=== PATIENT | female | born 1985 | race Caucasian/White ===

== ENCOUNTER 2017-04-04 16:02 | Emergency (ER) | payer OTHER ==
[2017-04-04 16:09] VITALS: RESP 18
[2017-04-04] MEDS ORDERED: NALOXONE 0.4 MG/ML 1 ML VIAL IV STA ×2 (16:10→16:16)
[2017-04-04 16:56] VITALS: BP 116/79; PULSE 110; TEMP 98.1
--- NOTE | 2017-04-04 17:00 | ED ---
Overdose HPI - General Chief Complaint: Overdose Stated Complaint: OVERDOSE Time Seen by Provider: 04/04/17 16:10 Source: patient, EMS, RN notes reviewed Mode of arrival: EMS Limitations: no limitations - History of Present Illness Initial Comments: 31-year-old female presents emergency for via EMS for heroin overdose. Patient was found at a home and states that she used 20 pack upper one. She states that she relapsed on heroin abuse. states that she just feels drowsy at this time. Patient was not given any Narcan prior arrival she is awake alert and orientated. Patient's is here with police secondary to her wound. Patient has no physical complaints she denies being depressed or suicidal at this time. - Related Data Allergies Allergy/AdvReac Type Severity Reaction Status Date / Time Sulfa (Sulfonamide Allergy Anaphylaxis Verified 04/04/17 16:06 Antibiotics) Review of Systems ROS Statement: Those systems with pertinent positive or pertinent negative responses have been documented in the HPI. ROS Other: All systems not noted in ROS Statement are negative. Past Medical History Past Medical History: Seizure Disorder History of Any Multi-Drug Resistant Organisms: None Reported Past Surgical History: No Surgical Hx Reported Past Psychological History: Anxiety, Bipolar, Depression, Schizophrenia Smoking Status: Current every day smoker Past Alcohol Use History: None Reported Past Drug Use History: Heroin, Marijuana General Exam Limitations: no limitations General appearance: alert, in no apparent distress Head exam: Present: atraumatic, normocephalic, normal inspection Eye exam: Present: normal appearance, PERRL, EOMI. Absent: scleral icterus, conjunctival injection, periorbital swelling ENT exam: Present: normal exam, mucous membranes moist Neck exam: Present: normal inspection. Absent: tenderness, meningismus, lymphadenopathy Respiratory exam: Present: normal lung sounds bilaterally. Absent: respiratory distress, wheezes, rales, rhonchi, stridor Cardiovascular Exam: Present: normal rhythm, tachycardia, normal heart sounds. Absent: systolic murmur, diastolic murmur, rubs, gallop, clicks Neurological exam: Present: alert, oriented X3, CN II-XII intact Skin exam: Present: warm, dry, intact, normal color. Absent: rash Course Vital Signs 04/04/17 16:06 Temperature 98.2 F Pulse Rate 125 H Respiratory 18 Rate Blood Pressure 125/74 O2 Sat by Pulse 95 Oximetry Medical Decision Making - Medical Decision Making 31-year-old female presented for heroin use. Patient given 0.4 Narcan she is more awake at this time she has been observed for one hour patient is no respiratory distress. Patient is awake delivery to 3. Patient will be discharged to police custody. Disposition Clinical Impression: Heroin abuse Disposition: HOME SELF-CARE Condition: Stable Instructions: Narcotic Abuse (ED) Additional Instructions: Please return to emergency room if symptoms worsen or any other concerns. Referrals: Desiree Weller MD [Primary Care Provider] - 1-2 days Time of Disposition: 17:00
== END 2017-04-04 17:01 | disposition home or self-care (01) ==
LOC: EC 16:02
DX: F11.10 Opioid abuse, uncomplicated (principal); F17.200 Nicotine dependence, unspecified, uncomplicated; Z88.2 Allergy status to sulfonamides
CPT/HCPCS: 99284; 96374; J2310

== ENCOUNTER 2023-09-28 23:39 | Observation (INO) | payer OTHER ==
--- NOTE | 2023-09-29 01:15 | XR ---
EXAMINATION TYPE: XR KUB DATE OF EXAM: 09/29/2023 1:08 AM CLINICAL HISTORY: Abdominal pain. Right lower quadrant pain for last 40 hours. TECHNIQUE: Two Upright KUB images of the abdomen are obtained. COMPARISON: None. FINDINGS: Scattered gas is seen in non-distended small and large bowel loops. Gas is seen in nondiste nded stomach. There is no visceromegaly, pneumoperitoneum, or abnormal calcification appreciated. The lung bases are clear and the visualized osseous structures are intact. IMPRESSION: Overall nonobstructive bowel gas pattern.
[2023-09-29 01:18] LABS: Basophils # (A) 0.1 k/uL (0-0.2); Basophils % (A) 0 %; Eosinophils # (A) 0.3 k/uL (0-0.7); Eosinophils % (A) 2 %; HCT 44.4 % (34.0-46.0); HGB 15.4 gm/dL (11.4-16.0); Lymphocytes % (A) 11 %; MCH 32.9 pg (25.0-35.0); MCHC 34.8 g/dL (31.0-37.0); MCV 94.5 fL (80.0-100.0); Mean Platelet Volume 8.6; Monocytes # (A) 0.7 k/uL (0-1.0); Monocytes % (A) 4 %; Neutrophils % (A) 82 %; Platelet Count 322 k/uL (150-450); RDW 11.7 % (11.5-15.5); WBC 18.3 k/uL (3.8-10.6)
[2023-09-29 01:33] LABS: ALT 34 U/L (4-34); AST 26 U/L (14-36); African American GFR (CKD) >90 (>60 ml/min/1.73 sqM); Albumin 4.3 g/dL (3.5-5.0); Alkaline Phosphatase 90 U/L (38-126); Amylase 48 U/L (30-110); Anion Gap 7 mmol/L; Blood Urea Nitrogen 14 mg/dL (7-17); Carbon Dioxide 21 mmol/L (22-30); Chloride 104 mmol/L (98-107); Glucose 98 mg/dL (74-99); Lipase 49 U/L (23-300); Non-African American GFR(CKD) >90 (>60 ml/min/1.73 sqM); Sodium 132 mmol/L (137-145); Total Protein 7.9 g/dL (6.3-8.2)
[2023-09-29 01:54] LABS: Potassium 4.1 mmol/L (3.5-5.1)
[2023-09-29] MEDS: ONDANSETRON 4 MG/2 ML VIAL IVP STA (03:37)
[2023-09-29] MEDS: HYDROmorphone 1 MG/ML 1 ML SYRINGE IVP STA (03:39)
[2023-09-29] MEDS: SODIUM CHLORIDE 0.9% 1,000 ML IV ONE (03:41)
--- NOTE | 2023-09-29 03:52 | ED ---
Abdominal Pain HPI - General Source: patient Mode of arrival: wheelchair Limitations: no limitations <Vicenta Harris - Last Filed: 09/29/23 03:51> <Nithya Willett P - Last Filed: 09/29/23 06:08> - General Chief Complaint: Abdominal Pain Stated Complaint: abd pain Time Seen by Provider: 09/29/23 02:47 - History of Present Illness Initial Comments: 37-year-old female presenting with chief complaint of abdominal pain. Patient has had right lower quadrant pain for the past 2 days. She admits to nausea with no vomiting. She is having dysuria and dark urine. No history of abdominal surgery. No fevers or chills. No diarrhea. (Vicenta Harris) - Related Data Allergies Allergy/AdvReac Type Severity Reaction Status Date / Time Sulfa (Sulfonamide Allergy Anaphylaxis Verified 09/29/23 00:24 Antibiotics) Review of Systems ROS Other: All systems not noted in ROS Statement are negative. <Vicenta Harris - Last Filed: 09/29/23 03:51> ROS Other: All systems not noted in ROS Statement are negative. <Nithya Willett - Last Filed: 09/29/23 06:08> ROS Statement: Those systems with pertinent positive or pertinent negative responses have been documented in the HPI. Past Medical History Past Medical History: Asthma, Seizure Disorder History of Any Multi-Drug Resistant Organisms: None Reported Past Surgical History: No Surgical Hx Reported Past Psychological History: Anxiety, Bipolar, Depression, Schizophrenia Smoking Status: Current every day smoker, Vaper Past Alcohol Use History: Occasional Past Drug Use History: Cocaine, Heroin, Marijuana, Methamphetamine <Vicenta Harris - Last Filed: 09/29/23 03:51> General Exam Limitations: no limitations General appearance: alert, in distress (in pain) Head exam: Present: atraumatic, normocephalic Eye exam: Present: normal appearance, EOMI Neck exam: Present: normal inspection Respiratory exam: Absent: respiratory distress GI/Abdominal exam: Present: soft, tenderness, guarding. Absent: distended, rebound, rigid Neurological exam: Present: alert, oriented X3 Psychiatric exam: Present: normal affect, normal mood Skin exam: Present: warm, dry <Vicenta Harris - Last Filed: 09/29/23 03:51> Course Vital Signs 09/29/23 09/29/23 09/29/23 00:25 03:23 05:19 Temperature 98.9 F Pulse Rate 110 H 86 91 Respiratory 24 18 18 Rate Blood Pressure 129/87 137/84 132/80 O2 Sat by Pulse 100 100 99 Oximetry Medical Decision Making - Lab Data Result diagrams: 09/29/23 01:00 09/29/23 01:00 <Vicenta Harris - Last Filed: 09/29/23 03:51> - Lab Data Result diagrams: 09/29/23 01:00 09/29/23 01:00 <Nithya Willett - Last Filed: 09/29/23 06:08> - Medical Decision Making Was patient admitted / discharged? Hospital course, mention meds given and route, prescriptions, significant lab abnormalities, going to OR and other pertinent info. @ -Admit Undiagnosed new problem with uncertain prognosis? @ -No Drug Therapy requiring intensive monitoring for toxicity (Heparin, Nitro, Insulin, Cardizem)? @ -No Were any procedures done? @ -No Diagnosis/symptom? @ -Acute appendicitis without perforation Acute, or Chronic, or Acute on Chronic? @ -Acute Uncomplicated (without systemic symptoms) or Complicated (systemic symptoms)? @ -default Side effects of treatment? @ -No Exacerbation, Progression, or Severe Exacerbation? @ -No Poses a threat to life or bodily function? How? (Chest pain, USA, OR, pneumonia, PE, COPD, DKA, ARF, appy, cholecystitis, CVA, Diverticulitis, Homicidal, Suicidal, threat to staff... and all critical care pts) @ -Yes, can advance to peritonitis septic and septic shock (Nithya Willett) - Lab Data Lab Results 09/29/23 09/29/23 09/29/23 Range/Units 01:00 01:00 01:00 WBC 18.3 H (3.8-10.6) k/uL RBC 4.70 (3.80-5.40) m/uL Hgb 15.4 (11.4-16.0) gm/dL Hct 44.4 (34.0-46.0) % MCV 94.5 (80.0-100.0) fL MCH 32.9 (25.0-35.0) pg MCHC 34.8 (31.0-37.0) g/dL RDW 11.7 (11.5-15.5) % Plt Count 322 (150-450) k/uL MPV 8.6 Neutrophils % 82 % Lymphocytes % 11 % Monocytes % 4 % Eosinophils % 2 % Basophils % 0 % Neutrophils # 15.0 H (1.3-7.7) k/uL Lymphocytes # 2.0 (1.0-4.8) k/uL Monocytes # 0.7 (0-1.0) k/uL Eosinophils # 0.3 (0-0.7) k/uL Basophils # 0.1 (0-0.2) k/uL Sodium 132 L (137-145) mmol/L Potassium 4.1 (3.5-5.1) mmol/L Chloride 104 (98-107) mmol/L Carbon Dioxide 21 L (22-30) mmol/L Anion Gap 7 mmol/L BUN 14 (7-17) mg/dL Creatinine 0.60 (0.52-1.04) mg/dL Est GFR (CKD-EPI)AfAm >90 (>60 ml/min/1.73 sqM) Est GFR (CKD-EPI)NonAf >90 (>60 ml/min/1.73 sqM) Glucose 98 (74-99) mg/dL Plasma Lactic Acid David 1.2 (0.7-2.0) mmol/L Calcium 9.0 (8.4-10.2) mg/dL Total Bilirubin 1.0 (0.2-1.3) mg/dL AST 26 (14-36) U/L ALT 34 (4-34) U/L Alkaline Phosphatase 90 (38-126) U/L Total Protein 7.9 (6.3-8.2) g/dL Albumin 4.3 (3.5-5.0) g/dL Amylase 48 (30-110) U/L Lipase 49 (23-300) U/L HCG, Qual 09/29/23 Range/Units 01:00 WBC (3.8-10.6) k/uL RBC (3.80-5.40) m/uL Hgb (11.4-16.0) gm/dL Hct (34.0-46.0) % MCV (80.0-100.0) fL MCH (25.0-35.0) pg MCHC (31.0-37.0) g/dL RDW (11.5-15.5) % Plt Count (150-450) k/uL MPV Neutrophils % % Lymphocytes % % Monocytes % % Eosinophils % % Basophils % % Neutrophils # (1.3-7.7) k/uL Lymphocytes # (1.0-4.8) k/uL Monocytes # (0-1.0) k/uL Eosinophils # (0-0.7) k/uL Basophils # (0-0.2) k/uL Sodium (137-145) mmol/L Potassium (3.5-5.1) mmol/L Chloride (98-107) mmol/L Carbon Dioxide (22-30) mmol/L Anion Gap mmol/L BUN (7-17) mg/dL Creatinine (0.52-1.04) mg/dL Est GFR (CKD-EPI)AfAm (>60 ml/min/1.73 sqM) Est GFR (CKD-EPI)NonAf (>60 ml/min/1.73 sqM) Glucose (74-99) mg/dL Plasma Lactic Acid David (0.7-2.0) mmol/L Calcium (8.4-10.2) mg/dL Total Bilirubin (0.2-1.3) mg/dL AST (14-36) U/L ALT (4-34) U/L Alkaline Phosphatase (38-126) U/L Total Protein (6.3-8.2) g/dL Albumin (3.5-5.0) g/dL Amylase (30-110) U/L Lipase (23-300) U/L HCG, Qual Not Detected Disposition <Vicenta Harris - Last Filed: 09/29/23 03:51> Is patient prescribed a controlled substance at d/c from ED?: No <Nithya Willett - Last Filed: 09/29/23 06:08> Clinical Impression: Acute appendicitis Disposition: ADMITTED IP TO THIS HOSP Condition: Stable Referrals: Renzo Hubbard MD [Primary Care Provider] - 1-2 days
--- NOTE | 2023-09-29 05:22 | CT ---
EXAMINATION TYPE: CT abdomen pelvis w con DATE OF EXAM: 09/29/2023 HISTORY: Pt presents with right lower quadrant pain for the past [address] DLP: 777.7mGycm Automated Exposure Control for Dose Reduction was Utilized. CONTRAST: CT scan of the abdomen and pelvis is performed with IV Contrast, patient injected with 100 mL of Isov ue 300. COMPARISON: None. FINDINGS: LUNG BASES: No significant abnormality is appreciated. LIVER/GB: No significant abnormality is appreciated. PANCREAS: No significant abnormality is seen. SPLEEN: No significant abnormality is seen. ADRENALS: No significant abnormality is seen. KIDNEYS: No significant abnormality is seen. BOWEL: Abnormal appendix in the right pelvis which is dilated up to 13 mm and has moderate to severe ill-defined surrounding fluid and fat stranding. No well-formed fluid collection or drainable abscess . No free air. No abnormal small or large bowel dilatation. UTERUS/ADNEXA: Anteverted uterus. LYMPH NODES: No greater than 1cm abdominal or pelvic lymph nodes are appreciated. OSSEOUS STRUCTURES: No significant abnormality is seen. OTHER: No significant additional abnormality is seen. IMPRESSION: CT findings consistent with uncomplicated acute appendicitis as detailed above. Fairly se adams inflammatory changes are noted. Critical results communicated to emergency room physician via phone call at time of dictation.
[2023-09-29] MEDS: PIPERACILLIN-TAZOBACTAM 3.375 GM in SODIUM CHLORIDE 0.9% 100 ML IVPB SCH ×2 (05:35→22:17)
[2023-09-29] MEDS ORDERED: NALOXONE 0.4 MG/ML 1 ML VIAL IV PRN (05:45)
[2023-09-29] MEDS ORDERED: ONDANSETRON 4 MG/2 ML VIAL IVP PRN ×2 (05:45→14:46)
[2023-09-29] MEDS: HYDROmorphone 1 MG/ML 1 ML SYRINGE IVP PRN (06:46)
[2023-09-29] MEDS: SODIUM CHLORIDE 0.9% 1,000 ML IV SCH (06:47)
[2023-09-29 08:17] LABS: Appearance,Urine Cloudy (Clear); Bacteria,Urine Rare /hpf; Bilirubin,Urine Negative (Negative); Blood,Urine Negative (Negative); Budding Yeast,Urine Rare /hpf; Cocaine Screen,Urine Not Detected (NotDetected); Color,Urine Light Yellow; Glucose,Urine (UA) Negative (Negative); Ketones,Urine Negative (Negative); Leukocyte Esterase,Urine Trace (Negative); Mucus,Urine Rare /hpf; Nitrite,Urine Negative (Negative); Opiate Screen,Urine Detected (NotDetected); PH, Urine 5.5 (5.0-8.0); Phencyclidine Screen,Urine Not Detected (NotDetected); Protein,Urine Negative (Negative); RBC,Urine 1 /hpf (0-5); Squamous Epithelial Cell,Urine 13 /hpf (0-4); Urn Cannabinoid Scrn Detected (NotDetected); Urobilinogen,Urine <2.0 mg/dL (<2.0); WBC,Urine 6 /hpf (0-5)
[2023-09-29 08:18] LABS: Amphetamine Screen,Urine Detected (NotDetected); Barbiturate Screen,Urine Not Detected (NotDetected); Benzodiazepines Screen,Urine Not Detected (NotDetected); Methadone Screen, Urine Not Detected (NotDetected); Oxycodone Screen, Urine Not Detected (NotDetected); Tricyclic Antidepressant,Urine Not Detected (NotDetected)
--- NOTE | 2023-09-29 11:32 | P.GSHP ---
History of Present Illness H&P Date: 09/29/23 CHIEF COMPLAINT: Abdominal pain HISTORY OF PRESENT ILLNESS: This is a 37-year-old female who presented to the hospital with complaints of right lower quadrant abdominal pain x 2 days. She has been having nausea no vomiting. She reports no fevers but has felt chilled. She had a CT scan of the abdomen pelvis that showed evidence of acute appendicitis. She has been mildly tachycardic and evidence of leukocytosis. Patient does have a history of heroin abuse. And she recently used meth and madeleine lucy a couple of days ago. Her drug screen is positive for opiates, amphetamines methamphetamines and marijuana. Patient denies any prior abdominal surgical history. Denies any cardiac history. Denies any chest pain or shortness of breath. PAST MEDICAL HISTORY: Asthma, seizure disorder, anxiety, bipolar, depression, schizophrenia PAST SURGICAL HISTORY: None MEDICATIONS: See below ALLERGIES: See below SOCIAL HISTORY: Prior history of heroin use. Recent cocaine and meth use. Patient does vape and use marijuana. REVIEW OF SYSTEMS: CONSTITUTIONAL: Denies fever or chills. HEENT: Denies blurred vision, vision changes, or eye pain. Denies hemoptysis CARDIOVASCULAR: Denies chest pain or pressure. RESPIRATORY: No shortness of breath. GASTROINTESTINAL: See HPI for pertinent findings HEMATOLOGIC: Denies bleeding disorders. GENITOURINARY: Denies any blood in urine or increased urinary frequency. SKIN: Denies pruitis. Denies rash. PHYSICAL EXAM: VITAL SIGNS: Reviewed GENERAL: Well-developed in no acute distress. HEENT: No sclera icterus. Extraocular movements grossly intact. Moist buccal mucosa. Head is atraumatic, normocephalic. No nasal drainage. ABDOMEN: Soft. Mildly distended. Tenderness to palpation right lower quadrant NEUROLOGIC: Alert and oriented. Cranial nerves II through XII grossly intact. LABORATORY DATA: WBC 18.3 Hgb 15.4 platelets 322 Sodium 132 potassium 4.1 creatinine 0.60 Lactic acid 1.2 LFTs normal lipase 49 Urine hCG not detected Drug screen positive for opiates, amphetamines, methamphetamines and marijuana IMAGING: CT scan abdomen pelvis ED findings consistent with uncomplicated acute appendicitis. Fairly severe inflammatory changes are noted. KUB x-ray overall nonobstructive bowel gas pattern ASSESSMENT: 1. Acute appendicitis PLAN: -Patient scheduled for laparoscopic appendectomy today with Dr. Landaverde -Keep patient n.p.o. -Continue IV fluids -Continue antibiotics -Continue pain management Physician Rubber Engraver note has been reviewed by physician. Signing provider agrees with the documented findings, assessment, and plan of care. Past Medical History Past Medical History: Asthma, Seizure Disorder History of Any Multi-Drug Resistant Organisms: None Reported Past Surgical History: No Surgical Hx Reported Past Psychological History: Anxiety, Bipolar, Depression, Schizophrenia Smoking Status: Current every day smoker, Vaper Past Alcohol Use History: Occasional Past Drug Use History: Cocaine, Heroin, Marijuana, Methamphetamine Medications and Allergies Home Medications Medication Instructions Recorded Confirmed Type No Known Home Medications 09/29/23 09/29/23 History Allergies Allergy/AdvReac Type Severity Reaction Status Date / Time banana Allergy Anaphylaxis Verified 09/29/23 07:00 Sulfa (Sulfonamide Allergy Anaphylaxis Verified 09/29/23 07:00 Antibiotics) sulfamethoxazole Allergy Anaphylaxis Verified 09/29/23 07:00 [From Bactrim] trimethoprim [From Bactrim] Allergy Anaphylaxis Verified 09/29/23 07:00 Surgical - Exam Vital Signs Temp Pulse Resp BP Pulse Ox 98.9 F 110 H 24 129/87 100 09/29/23 00:25 09/29/23 00:25 09/29/23 00:25 09/29/23 00:25 09/29/23 00:25 Results - Labs 09/29/23 01:00 09/29/23 01:00 Abnormal Lab Results - Last 24 Hours (Table) 09/29/23 09/29/23 09/29/23 Range/Units 01:00 01:00 06:48 WBC 18.3 H (3.8-10.6) k/uL Neutrophils # 15.0 H (1.3-7.7) k/uL Sodium 132 L (137-145) mmol/L Carbon Dioxide 21 L (22-30) mmol/L Urine Appearance Cloudy H (Clear) Ur Specific [place] 1.050 H (1.001-1.035) Ur Leukocyte Esterase Trace H (Negative) Urine WBC 6 H (0-5) /hpf Ur Squamous Epith Cells 13 H (0-4) /hpf Urine Bacteria Rare H (None) /hpf Urine Mucus Rare H (None) /hpf Urine Yeast (Budding) Rare H (None) /hpf Urine Opiates Screen (NotDetected) Ur Amphetamines Screen (NotDetected) U Methamphetamines Scrn (NotDetected) U Marijuana (THC) Screen (NotDetected) 09/29/23 Range/Units 06:48 WBC (3.8-10.6) k/uL Neutrophils # (1.3-7.7) k/uL Sodium (137-145) mmol/L Carbon Dioxide (22-30) mmol/L Urine Appearance (Clear) Ur Specific [place] (1.001-1.035) Ur Leukocyte Esterase (Negative) Urine WBC (0-5) /hpf Ur Squamous Epith Cells (0-4) /hpf Urine Bacteria (None) /hpf Urine Mucus (None) /hpf Urine Yeast (Budding) (None) /hpf Urine Opiates Screen Detected H (NotDetected) Ur Amphetamines Screen Detected H (NotDetected) U Methamphetamines Scrn Detected H (NotDetected) U Marijuana (THC) Screen Detected H (NotDetected) Diabetes panel 09/29/23 Range/Units 01:00 Sodium 132 L (137-145) mmol/L Potassium 4.1 (3.5-5.1) mmol/L Chloride 104 (98-107) mmol/L Carbon Dioxide 21 L (22-30) mmol/L BUN 14 (7-17) mg/dL Creatinine 0.60 (0.52-1.04) mg/dL Glucose 98 (74-99) mg/dL Calcium 9.0 (8.4-10.2) mg/dL AST 26 (14-36) U/L ALT 34 (4-34) U/L Alkaline Phosphatase 90 (38-126) U/L Total Protein 7.9 (6.3-8.2) g/dL Albumin 4.3 (3.5-5.0) g/dL Calcium panel 09/29/23 Range/Units 01:00 Calcium 9.0 (8.4-10.2) mg/dL Albumin 4.3 (3.5-5.0) g/dL Pituitary panel 09/29/23 Range/Units 01:00 Sodium 132 L (137-145) mmol/L Potassium 4.1 (3.5-5.1) mmol/L Chloride 104 (98-107) mmol/L Carbon Dioxide 21 L (22-30) mmol/L BUN 14 (7-17) mg/dL Creatinine 0.60 (0.52-1.04) mg/dL Glucose 98 (74-99) mg/dL Calcium 9.0 (8.4-10.2) mg/dL Adrenal panel 09/29/23 Range/Units 01:00 Sodium 132 L (137-145) mmol/L Potassium 4.1 (3.5-5.1) mmol/L Chloride 104 (98-107) mmol/L Carbon Dioxide 21 L (22-30) mmol/L BUN 14 (7-17) mg/dL Creatinine 0.60 (0.52-1.04) mg/dL Glucose 98 (74-99) mg/dL Calcium 9.0 (8.4-10.2) mg/dL Total Bilirubin 1.0 (0.2-1.3) mg/dL AST 26 (14-36) U/L ALT 34 (4-34) U/L Alkaline Phosphatase 90 (38-126) U/L Total Protein 7.9 (6.3-8.2) g/dL Albumin 4.3 (3.5-5.0) g/dL
[2023-09-29] MEDS: IV FLUID CONTINUATION 800 ML IV ONE (12:58)
[2023-09-29] MEDS: DEXAMETHASONE SOD PHOSPHATE 4 MG/ML 1 ML VIAL IVP ONE (13:25)
[2023-09-29] MEDS ORDERED: fentaNYL (PF) 50 MCG/ML 2 ML AMP ONE (13:54)
[2023-09-29] MEDS ORDERED: LIDOCAINE 1% INJ 10MG/ML (20 ML MDV) ONE (13:54)
[2023-09-29] MEDS ORDERED: GLYCOPYRROLATE 0.2 MG/ML 2 ML VIAL ONE (13:54)
[2023-09-29] MEDS ORDERED: NEOSTIGMINE 1 MG/ML 10 ML VIAL ONE (13:54)
[2023-09-29] MEDS ORDERED: ROCURONIUM 10 MG/ML (5 ML VIAL) IV ONE (13:54)
[2023-09-29] MEDS ORDERED: HEPARIN SODIUM,PORCINE 5,000 UNIT/ML 1 ML VIAL ONE (13:54)
[2023-09-29] MEDS ORDERED: SUCCINYLCHOLINE CHLORIDE 200 MG/10 ML VIAL IV ONE (13:54)
[2023-09-29] MEDS ORDERED: MIDAZOLAM 2 MG/2 ML VIAL ONE (13:54)
[2023-09-29] MEDS ORDERED: PROPOFOL 10 MG/ML 20 ML VIAL IV ONE (13:54)
[2023-09-29] MEDS: LIDOCAINE 2%-EPI 1:100,000 20 ML VIAL SQ ONE (14:22)
[2023-09-29] MEDS: BUPIVACAINE (PF) 0.25% 30 ML VIAL SQ ONE (14:23)
[2023-09-29] MEDS: LACTATED RINGERS 1,000 ML IV ONE (14:34)
--- NOTE | 2023-09-29 14:45 | P.OP ---
Date of Procedure: 09/29/23 Preoperative Diagnosis: Acute appendicitis Postoperative Diagnosis: Acute appendicitis with abscess Procedure(s) Performed: Laparoscopic appendectomy Anesthesia: MANJU Surgeon: Jack Landaverde Estimated Blood Loss (ml): 5 Pathology: other (Appendix) Condition: stable Disposition: PACU Description of Procedure: Ro the patient's placed on the operating table in the supine position. The patient received general anesthesia. The abdomen was prepped and draped in the usual sterile fashion. The skin was anesthetized 1% local Xylocaine at the trocar sites. Using an 11 blade the skin was incised at the umbilicus. The umbilicus was grasped with a Veneta clamp and then a Veress needle was placed into the peritoneal cavity. Position of the Veress needle was confirmed with positive drop test. After adequate insufflation a 5 mm trocar was placed into the peritoneal cavity. The abdomen was further insufflated. And then the laparoscope was placed in the peritoneal cavity. Next a 5 mm trocar was placed in the midline suprapubic position. And then a 10 mm trocar was placed in the midline epigastric position. The patient was rotated with the right side up and in Trendelenburg. The appendix was visualized. The appendix was adhered to the lateral abdominal wall. This was peeled back with blunt dissection. There was a small abscess cavity. The appendix appeared to be inflamed. The appendix was grasped and then using the Harmonic scissors the mesoappendix was divided. A PDS Endoloop was then placed around the base of the appendix. And then the appendix was divided using Harmonic scissors. The appendix was placed into an Endo Catch and brought out through the 10 mm trocar site. The abdomen was irrigated. There is no bleeding seen. The trochars withdrawn. The skin was closed interrupted 3-0 Monocryl suture. Dermabond dressing was applied. Patient was sent to recovery room in stable condition.
[2023-09-29] MEDS ORDERED: HYDROmorphone 1 MG/ML 1 ML SYRINGE IVP PRN (14:46)
[2023-09-29] MEDS: HYDROmorphone 1 MG/ML 1 ML SYRINGE IVP ONE (15:02)
--- NOTE | 2023-09-30 01:42 | CONS ---
CONSULTATION HISTORY OF PRESENT ILLNESS: A 37-year-old white female, status post cholecystectomy, medical management consult. She appears to be in lot of pain, she says. PHYSICAL EXAMINATION: VITAL SIGNS: Her pulse is low 100s, temperature 98.7, respiratory rate 16 to 14, blood pressure 130s to 140s over 80, and 98% on room air. GENERAL: She is lying comfortably in bed, sighs, grimacing in pain. LABORATORY DATA: White count is 18.3. We will recheck in the morning. We will start her on antibiotics. Sodium 132, potassium 4.1. ASSESSMENT: Status post cholecystectomy, hypertension, mild tachycardia, seizure, anxiety, bipolar depression, schizophrenia, history of drug use and vaping. She is resting comfortably. We will recheck white count in the morning. Prognosis guarded. Continue current treatments. Breathing treatment p.r.n. for shortness of breath. Please see further orders. MMODL / IJN: [id number] /
[2023-09-30] MEDS: ENOXAPARIN 40 MG/0.4 ML SYRINGE SQ SCH (08:04)
[2023-09-30 08:56] LABS: ALT 18 U/L (8-44); AST 11 U/L (13-35); Albumin 3.2 g/dL (3.8-4.9); Albumin/Globulin Ratio 1.23 Ratio (1.60-3.17); Alkaline Phosphatase 76 U/L (41-126); BUN/Creat Ratio 14.43 Ratio (12.00-20.00); Blood Urea Nitrogen 10.1 mg/dL (9.0-27.0); Calcium 8.5 mg/dL (8.7-10.3); Carbon Dioxide 21.8 mmol/L (21.6-31.8); Chloride 102 mmol/L (96-109); Globulin 2.6 g/dL (1.6-3.3); Glucose 125 mg/dL (70-110); Sodium 135 mmol/L (135-145); Total Bilirubin 0.5 mg/dL (0.3-1.2); Total Protein 5.8 g/dL (6.2-8.2)
[2023-09-30 09:08] LABS: Basophils # (A) 0.04 X 10*3/uL (0.00-0.10); Basophils % (A) 0.2 %; Eosinophils # (A) 0 X 10*3/uL (0.04-0.35); Eosinophils % (A) 0 %; HCT 37.6 % (37.2-46.3); HGB 12.9 g/dL (12.0-15.0); Lymphocytes # (A) 0.93 X 10*3/uL (0.90-5.00); Lymphocytes % (A) 4.4 %; MCH 32.7 pg (27.0-32.0); MCHC 34.3 g/dL (32.0-37.0); MCV 95.2 FL (80.0-97.0); Mean Platelet Volume 11.1 FL (9.5-12.2); Monocytes # (A) 0.89 X 10*3/uL (0.20-1.00); Monocytes % (A) 4.2 %; NRBC Per 100 WBC 0 X 10*3/uL (0.00-0.01); Neutrophils # (A) 19.35 X 10*3/uL (1.80-7.70); Neutrophils % (A) 90.6 %; Platelet Count 284 X 10*3/uL (140-440); RBC 3.95 X 10*6/uL (4.10-5.20); RDW 12.1 % (11.5-14.5); WBC 21.33 X 10*3/uL (4.50-10.00)
[2023-09-30] MEDS: ACETAMINOPHEN TAB 500 MG TAB PO SCH (09:24)
[2023-09-30] MEDS: KETOROLAC 15 MG/ML 1 ML VIAL IVP SCH (12:42)
--- NOTE | 2023-09-30 15:46 | P.PN ---
Subjective Progress Note Date: 09/30/23 CHIEF COMPLAINT: Acute appendicitis HISTORY OF PRESENT ILLNESS: Patient is postop day #1 status post laparoscopic appendectomy. Patient complaining of abdominal pain. Still requiring IV pain medication. Denies any nausea or vomiting. Denies any flatus. Reports decreased appetite. Afebrile. WBC is up from 18.3-21.3 Hgb 12.9 platelets 284 sodium 135 potassium 4.0 creatinine 0.7 URSULA drain 75 mL serosanguineous output PHYSICAL EXAM: VITAL SIGNS: Reviewed. GENERAL: Well-developed in no acute distress. ABDOMEN: Soft. Mildly distended. Tender at incision sites. Incision sites clean dry and intact NEUROLOGIC: Alert and oriented. Cranial nerves II through XII grossly intact. ASSESSMENT: 1. Acute appendicitis with abscess 2. Leukocytosis 3. Polysubstance abuse PLAN: -Tylenol and Toradol added for pain management -Encourage patient ambulate -Encourage patient to use incentive spirometer -Continue antibiotics -Continue regular diet -Repeat CBC in a.m. -DVT prophylaxis Lovenox Physician Roll Machine Operator note has been reviewed by physician. Signing provider agrees with the documented findings, assessment, and plan of care. Objective - Vital Signs Vital signs: Vital Signs Temp 98.6 F 09/30/23 13:48 Pulse 89 09/30/23 13:48 Resp 16 09/30/23 13:48 BP 131/78 09/30/23 13:48 Pulse Ox 95 09/30/23 13:48 FiO2 Intake & Output 09/29/23 09/30/23 09/30/23 18:59 06:59 18:59 Intake Total 1200 236 Output Total 5 175 0 Balance 1195 -175 236 Weight 83.915 kg Intake: IV 1200 Oral 236 Output: Drainage 175 0 Anterior Medial Abdomen 175 0 Estimated Blood Loss 5 Other: Voiding Method Toilet Toilet # Voids 2 2 - Labs CBC & Chem 7: 09/30/23 03:05 09/30/23 03:05 Labs: Abnormal Lab Results - Last 24 Hours (Table) 09/30/23 09/30/23 Range/Units 03:05 03:05 WBC 21.33 H (4.50-10.00) X 10*3/uL RBC 3.95 L (4.10-5.20) X 10*6/uL MCH 32.7 H (27.0-32.0) pg Immature Gran # 0.12 H (0.00-0.04) X 10*3/uL Neutrophils # 19.35 H (1.80-7.70) X 10*3/uL Eosinophils # 0 L (0.04-0.35) X 10*3/uL Glucose 125 H (70-110) mg/dL Calcium 8.5 L (8.7-10.3) mg/dL AST 11 L (13-35) U/L Total Protein 5.8 L (6.2-8.2) g/dL Albumin 3.2 L (3.8-4.9) g/dL Albumin/Globulin Ratio 1.23 L (1.60-3.17) Ratio
--- NOTE | 2023-10-01 01:22 | PN ---
PROGRESS NOTE SUBJECTIVE: A 37-year-old white female who is on pain control for status post , felt better pain as well as Toradol, cellulitis and Dilaudid, IV Zosyn. White count jumped , will repeat in the morning, do septic workup. PROGNOSIS: Guarded. MMODL / IJN: [id number] /
[2023-10-01 08:07] LABS: ALT 16 U/L (4-34); AST 19 U/L (14-36); African American GFR (CKD) >90 (>60 ml/min/1.73 sqM); Albumin 2.7 g/dL (3.5-5.0); Albumin/Globulin Ratio 0.9; Alkaline Phosphatase 79 U/L (38-126); Anion Gap 4 mmol/L; Blood Urea Nitrogen 18 mg/dL (7-17); Carbon Dioxide 23 mmol/L (22-30); Chloride 110 mmol/L (98-107); Glucose 86 mg/dL (74-99); Non-African American GFR(CKD) >90 (>60 ml/min/1.73 sqM); Potassium 3.9 mmol/L (3.5-5.1); Sodium 137 mmol/L (137-145); Total Bilirubin 0.4 mg/dL (0.2-1.3); Total Protein 5.7 g/dL (6.3-8.2)
[2023-10-01 10:53] LABS: Basophils # (A) 0.1 k/uL (0-0.2); Basophils % (A) 0 %; Eosinophils # (A) 0.2 k/uL (0-0.7); Eosinophils % (A) 2 %; HCT 33.9 % (34.0-46.0); Lymphocytes # (A) 1.8 k/uL (1.0-4.8); Lymphocytes % (A) 15 %; MCH 33.7 pg (25.0-35.0); MCV 96.3 fL (80.0-100.0); Mean Platelet Volume 8.9; Monocytes # (A) 0.4 k/uL (0-1.0); Monocytes % (A) 4 %; Neutrophils # (A) 9.3 k/uL (1.3-7.7); Neutrophils % (A) 79 %; Platelet Count 308 k/uL (150-450); RBC 3.53 m/uL (3.80-5.40); WBC 11.8 k/uL (3.8-10.6)
[2023-10-01 10:54] LABS: HGB 11.9 gm/dL (11.4-16.0)
[2023-10-01] MEDS: DOCUSATE 100 MG CAP PO SCH (11:35)
[2023-10-01] MEDS: amLODIPine 5 MG TAB PO SCH (15:21)
--- NOTE | 2023-10-01 15:40 | P.PN ---
Subjective Progress Note Date: 10/01/23 CHIEF COMPLAINT: Acute appendicitis HISTORY OF PRESENT ILLNESS: Patient is postop day #2 status post laparoscopic appendectomy. Patient complaining of abdominal pain. Still requiring IV pain medication. Denies any nausea or vomiting. She is having flatus. URSULA drain has now become more purulent in color. URSULA drain output 20 mL this morning. Afebrile. WBC is down from 21.3-11.8 PHYSICAL EXAM: VITAL SIGNS: Reviewed. GENERAL: Well-developed in no acute distress. ABDOMEN: Soft. Mildly distended. Tender at incision sites. Incision sites clean dry and intact NEUROLOGIC: Alert and oriented. Cranial nerves II through XII grossly intact. ASSESSMENT: 1. Acute appendicitis with abscess 2. Leukocytosis 3. Polysubstance abuse PLAN: -Continue to monitor URSULA drain output -Continue pain management -Encourage patient ambulate -Encourage patient to use incentive spirometer -Continue antibiotics -Continue regular diet -Repeat CBC in a.m. -Add Colace -Possible discharge tomorrow or Wednesday -DVT prophylaxis Lovenox Physician Installations Inspector note has been reviewed by physician. Signing provider agrees with the documented findings, assessment, and plan of care. I have personally seen and examined the patient, reviewed the TEACHER ASSISTANT /PAs history, exam and MDM and agree with the assessment and plan as written. Based on total visit time, I have performed more than 50% of the visit. As above: Patient still having some abdominal discomfort. White blood cell count is improved. Says her pain is slightly better than yesterday. She thinks there is too much pain to go home with however. URSULA drain today is seropurulent. Continue antibiotics. Continue diet. Ambulate. Reevaluate tomorrow. Objective - Vital Signs Vital signs: Vital Signs Temp 97.9 F 10/01/23 14:37 Pulse 92 10/01/23 15:07 Resp 18 10/01/23 14:37 BP 157/106 10/01/23 15:07 Pulse Ox 96 10/01/23 15:07 FiO2 Intake & Output 09/30/23 10/01/23 10/01/23 18:59 06:59 18:59 Intake Total 236 236 Output Total 30 20 Balance 206 216 Intake: Oral 236 236 Output: Drainage 30 20 Anterior Medial Abdomen 30 20 Other: Voiding Method Toilet Toilet Toilet # Voids 2 1 2 # Bowel Movements 1 - Labs CBC & Chem 7: 10/01/23 10:16 10/01/23 07:23 Labs: Abnormal Lab Results - Last 24 Hours (Table) 10/01/23 10/01/23 Range/Units 07:23 10:16 WBC 11.8 H (3.8-10.6) k/uL RBC 3.53 L (3.80-5.40) m/uL Hct 33.9 L (34.0-46.0) % Neutrophils # 9.3 H (1.3-7.7) k/uL Chloride 110 H (98-107) mmol/L BUN 18 H (7-17) mg/dL Calcium 8.0 L (8.4-10.2) mg/dL Total Protein 5.7 L (6.3-8.2) g/dL Albumin 2.7 L (3.5-5.0) g/dL
--- NOTE | 2023-10-01 21:43 | PN ---
PROGRESS NOTE SUBJECTIVE: A 37-year-old white female, status post cholecystectomy. The patient is doing better. OBJECTIVE: VITAL SIGNS: Temp 97.9, blood pressure high 160s to 150s over 100s, O2 96 on room air, pulse 95 to 96, and respiratory rate 16 to 18. CARDIOVASCULAR: S1, S2. LUNGS: Clear. GI: Soft. White count went from 21 down to 11 with a left shift. Continue broad-spectrum antibiotics. Treat blood pressure with amlodipine, I will give her 5 mg of amlodipine and monitor her blood pressure overnight and possibly discharge home at that point. Please see further orders. MMODL / IJN: [id number] /
--- NOTE | 2023-10-01 22:25 | CT ---
EXAMINATION TYPE: CT angio chest DATE OF EXAM: 10/01/2023 COMPARISON: NONE HISTORY: Elevated d-dimer with SOB CT DLP: 237.2 mGycm. Automated Exposure Control for Dose Reduction was Utilized. CONTRAST: CTA scan of the thorax is performed with IV Contrast, patient injected with 80 cc mL of Isovue 370, p ulmonary embolism protocol. MIP Images are created on CT scanner and reviewed. FINDINGS: LUNGS: Tiny bilateral pleural effusions with associated compressive atelectasis in the lung bases. Th ere is additional mild linear scarring and/or atelectasis in both bases just above the diaphragm. No pneumothorax seen bilaterally. MEDIASTINUM: Suboptimal study with most dense contrast seen in the SVC but there is no convincing CT evidence for acute pulmonary embolism. Satisfactory enhancement of the thoracic aorta without aneurys m or dissection. There are no greater than 1 cm hilar or mediastinal lymph nodes. No cardiomegaly o r pericardial effusion is seen. OTHER: No additional significant abnormality is seen. IMPRESSION: Suboptimal study without acute pulmonary embolism. Tiny bilateral pleural effusions with mild to moderate bibasilar atelectasis. Correlate for fluid overload state.
--- NOTE | 2023-10-01 22:47 | US ---
EXAMINATION TYPE: US venous doppler duplex LE DATE OF EXAM: 10/01/2023 10:36 PM COMPARISON: NONE CLINICAL INDICATION: Female, 37 years old with history of elevated d-dimer; Elevated D-Dimer SIDE PERFORMED: bilateral TECHNIQUE: The lower extremity deep venous system is examined utilizing real time linear array sonog kimberly with graded compression, doppler sonography and color-flow sonography. VESSELS IMAGED: Common Femoral Vein Deep Femoral Vein Greater Saphenous Vein * Femoral Vein Popliteal Vein Small Saphenous Vein * Proximal Calf Veins (* superficial vessels) Right Leg: No evidence of DVT Left Leg: No evidence of DVT Grayscale, color doppler, spectral doppler imaging performed of the deep veins of the bilateral lower extremities. There is normal flow, compressibility, vascular waveforms. IMPRESSION: No ultrasound evidence for acute DVT in either lower extremity.
[2023-10-02 08:19] VITALS: RESP 18; TEMP 98
[2023-10-02 19:03] VITALS: BP 151/88; PULSE 95
--- NOTE | 2023-10-02 19:25 | PN ---
PROGRESS NOTE SUBJECTIVE: She is on IV Zosyn, Norvasc for hypertension. The patient wants to go home today. OBJECTIVE: VITAL SIGNS: O2 97% on room air, blood pressures are 140s to 150s over 80s to 90s, respiratory rate 16 to 18, pulse 80s to 90s, temp 98. CARDIOVASCULAR: S1, S2. LUNGS: Clear. PSYCH: Fair mood and affect. PLAN: She will go home on hypertension medicines, amlodipine 5 mg daily for hypertension. Possibly some tramadol for surgical pain. Follow up in the next 24 to 48 hours. MMODL / IJN: [id number] /
== END 2023-10-02 16:26 | disposition home or self-care (01) ==
LOC: EC 23:39 → 6NMEDSUR 09-29 05:47
PROVIDERS: ADMIT Surgery; ATTEND Surgery
DX: K35.33 Acute appendicitis with perforation, localized peritonitis, and gangrene, with abscess (principal); I10 Essential (primary) hypertension; J45.909 Unspecified asthma, uncomplicated; G40.909 Epilepsy, unspecified, not intractable, without status epilepticus; F14.90 Cocaine use, unspecified, uncomplicated; F11.10 Opioid abuse, uncomplicated; F20.9 Schizophrenia, unspecified; F31.9 Bipolar disorder, unspecified; F41.9 Anxiety disorder, unspecified; F15.90 Other stimulant use, unspecified, uncomplicated; F17.290 Nicotine dependence, other tobacco product, uncomplicated; Z88.1 Allergy status to other antibiotic agents; Z88.2 Allergy status to sulfonamides; Z91.018 Allergy to other foods
CPT/HCPCS: 44970; 96376; 96372 ×3; 96361; 96374; 96375; 99285; 36415; 81025; 85379; 88304; 80053 ×3; 82150; 83605; 83690; 85025 ×3; 81001; 84703; 80306; 74018; 93970; 71275; 74177; G0378 ×4; J2543 ×4; J2250; J0330; J1644; J1100; J2710; J2405; J2001; J1650 ×3; J3010; J1170 ×4; J1885 ×3; J2704; Q9967 ×2; J0665

== ENCOUNTER 2023-10-03 11:45 | Emergency (ER) | payer OTHER ==
[2023-10-03 12:28] VITALS: PULSE 90; RESP 18; TEMP 98
--- NOTE | 2023-10-03 12:46 | ED ---
General Adult HPI - General Chief complaint: Abdominal Pain Stated complaint: post op complications Time Seen by Provider: 10/03/23 12:27 Source: patient, RN notes reviewed, old records reviewed Mode of arrival: ambulatory Limitations: no limitations - History of Present Illness Initial comments: Patient is a 37-year-old female presents emergency department complaining of abdominal pain. Patient has a URSULA drain in place after receiving an appendectomy on September 29, 2023. She was discharged on October 02, 2023. States she was walking her dog earlier when it jostled her URSULA drain. States she has been dealing with pain since discharge and was not discharged home on any pain medications. States the drain is still functioning. Drain is still in place. Still draining serosanguineous fluid. She denies any fevers, chills. Denies any nausea, vomiting. Has no other acute complaints at this time. Denies diarrhea or constipation. Presents for reevaluation at this time. Presents for postop pain - Related Data Previous Rx's Medication Instructions Recorded Acetaminophen Tab [Tylenol] 1,000 mg PO Q6HR PRN #30 tablet 10/01/23 Ibuprofen [Motrin] 600 mg PO Q8HR PRN #30 tab 10/01/23 amLODIPine [Norvasc] 5 mg PO DAILY 90 Days #90 tab 10/02/23 Amoxic-Pot Clav 875-125Mg 1 tab PO Q12HR 7 Days #14 tab 10/03/23 [Augmentin 875-125] Allergies Allergy/AdvReac Type Severity Reaction Status Date / Time banana Allergy Anaphylaxis Verified 10/03/23 12:24 Sulfa (Sulfonamide Allergy Anaphylaxis Verified 10/03/23 12:24 Antibiotics) sulfamethoxazole Allergy Anaphylaxis Verified 10/03/23 12:24 [From Bactrim] trimethoprim [From Bactrim] Allergy Anaphylaxis Verified 10/03/23 12:24 Review of Systems ROS Statement: Those systems with pertinent positive or pertinent negative responses have been documented in the HPI. Review of Systems: CONST: Denies fever EYES: Denies blurry vision ENT: Denies nasal congestion C/V: Denies Chest pain RESP: Denies shortness of breath GI: Endorses abdominal pain : Denies dysuria SKIN: Denies rash. MSK: Denies joint pain. NEURO: Denies headache ROS Other: All systems not noted in ROS Statement are negative. Past Medical History Past Medical History: Asthma, Seizure Disorder History of Any Multi-Drug Resistant Organisms: None Reported Past Surgical History: No Surgical Hx Reported, Appendectomy Past Psychological History: Anxiety, Bipolar, Depression, Schizophrenia Smoking Status: Current every day smoker, Vaper Past Alcohol Use History: None Reported Past Drug Use History: None Reported General Exam - General Exam Comments Initial Comments: General: Appears in no acute distress. HEAD: Normal with no signs of head trauma. EYES: EOMI ENT: Hearing grossly intact, normal oropharynx. RESPIRATORY: Clear breath sounds bilaterally. No wheezes, rales, or rhonchi. C/V: Regular rate and rhythm. S1 and S2 auscultated, no edema, peripheral pulses 2+ and intact throughout ABD: Abdomen is soft, nondistended. Tender to palpation around the site of the URSULA drain. No obvious skin changes. URSULA drain is still in place and draining adequately. Serosanguineous drainage. No obvious rebound tenderness, peritoneal signs. No guarding. EXT: Normal range of motion, no obvious deformity SKIN: No rashes or lesions observed on exposed skin. NEURO: Alert and oriented x 4. Limitations: no limitations Course Vital Signs 10/03/23 10/03/23 12:22 18:00 Temperature 98 F Pulse Rate 90 Respiratory 18 18 Rate Blood Pressure 155/98 166/108 O2 Sat by Pulse 99 97 Oximetry Medical Decision Making - Medical Decision Making Was pt. sent in by a medical professional or institution ([facility]OB[facility] Keith, ENGINE LATHE TENDER, urgent care, hospital, or fpc...) When possible be specific @ -No Did you speak to anyone other than the patient for history (EMS, parent, family, police, friend...)? What history was obtained from this source @ -No Did you review nursing and triage notes (agree or disagree)? Why? @ -I reviewed and agree with nursing and triage notes Were old charts reviewed (outside hosp., previous admission, EMS record, old EKG, old radiological studies, urgent care reports/EKG's, fpc records)? Report findings @ -Old charts reviewed Differential Diagnosis (chest pain, altered mental status, abdominal pain women, abdominal pain men, vaginal bleeding, weakness, fever, dyspnea, syncope, headache, dizziness, GI bleed, back pain, seizure, CVA, palpatations, mental health, musculoskeletal)? @ -Differential Abdominal Pain Women: Appendicitis, Cholecystitis, diverticulosis, ischemic bowel, pancreatitis, hepatitis, UTI, gastroenteritis, AAA, incarcerated hernia, bowel obstruction, constipation, inflammatory bowel, hepatitis, peptic ulcer disease, splenic infarction, perforated viscus, vulvitis, ovarian torsion, PID, kidney stone, placenta abruption, this is not meant to be an all-inclusive list EKG interpreted by me (3pts min.). @ -None done X-rays interpreted by me (1pt min.). @ -None done CT interpreted by me (1pt min.). @ -CT abdomen pelvis reveals phlegmonous changes in the right lower quadrant with URSULA noted to be in adequate position. No obvious drainable abscess. U/S interpreted by me (1pt. min.). @ -None done What testing was considered but not performed or refused? (CT, X-rays, U/S, labs)? Why? @ -None What meds were considered but not given or refused? Why? @ -None Did you discuss the management of the patient with other professionals (professionals i.e. , PA, ENGINE LATHE TENDER, lab, RT, psych nurse, social service technician, school cafeteria cook head, teacher, court registry officer, hospice case manager)? Give summary @ -Discussed with Dr. Faulkner who was in agreement the plan for patient to follow-up outpatient with Dr. Landaverde. Patient was supposed to be discharged home on antibiotics per Dr. Faulkner, and he recommended started the patient on twice daily Augmentin. Otherwise was in agreement with plan for discharge home. Was smoking cessation discussed for >3mins.? @ -No Was critical care preformed (if so, how long)? @ -No Were there social determinants of health that impacted care today? How? (Homelessness, low income, unemployed, alcoholism, drug addiction, transportation, low edu. Level, literacy, decrease access to med. care, fci, rehab)? @ -No Was there de-escalation of care discussed even if they declined (Discuss DNR or withdrawal of care, Hospice)? DNR status @ -No What co-morbidities impacted this encounter? (DM, HTN, Smoking, COPD, CAD, Cancer, CVA, ARF, Chemo, Hep., AIDS, mental health diagnosis, sleep apnea, morbid obesity)? @ -None Was patient admitted / discharged? Hospital course, mention meds given and route, prescriptions, significant lab abnormalities, going to OR and other pertinent info. @ -Patient presents with postop pain. Recently had an appendectomy. Has URSULA drain in place which appears to be draining adequately. Is concerned as it was jostled somewhat. Is still having continued pain since discharge yesterday but states that somewhat worse today. Denies any fevers or obvious infectious changes. Will obtain abdominal laboratory studies as well as CT imaging to evaluate it due to the recent surgery. She was in agreement this plan. She will be given IV fluids, Zofran, morphine for symptomatic treatment. Vital signs are within acceptable limits. CT imaging revealed phlegmonous changes in the right lower quadrant with no obvious drainable abscess. URSULA drain is in adequate position. Patient's laboratory studies remarkable for an initial hemolyzed potassium of 5.8. Sarita zarina the labs within acceptable limits. No white blood cell count. I discussed results with the patient. I would like to repeat the potassium at this time and she was in agreement this plan. Due to delays, there was a long delay in obtaining repeat potassium. When it finally did return, it was low at 1.3 however I do suspect this was a diluted sample. There is no reason for the patient have hypo-kalemia at this time. Patient was in agreement the plan for repeat potassium again. After multiple hours again due to the long delay, repeat potassium was obtained and this 1, not hemolyzed and accurate on a butterfly draw was within normal limits at 4.1. I discussed the results with the patient. I discussed my conversation with Dr. Faulkner who recommended placing the patient on antibiotics and follow-up with Dr. Landaverde. As there is no drainable abscess, no indication for admission co nsidering labs look within normal limits. Patient was in agreement this plan. She will be given a dose of Augmentin as well as prescription. She will be given a starter pack of Tylenol 3. She was in agreement this plan. I will provide the patient with a prescription for Augmentin. I instructed the patient to follow up with their PCP in the next 1-3 days. I explained that the patient should return to the emergency department if they experience any worsening symptoms. Strict return precautions were discussed with the patient. The patient expressed understanding of these instructions. I answered all questions that the patient had. The patient was discharged home in good condition with their prescriptions and follow up information. Undiagnosed new problem with uncertain prognosis? @ -No Drug Therapy requiring intensive monitoring for toxicity (Heparin, Nitro, Insulin, Cardizem)? @ -No Were any procedures done? @ -No Diagnosis/symptom? @ -Postop pain in the setting of recent appendectomy Acute, or Chronic, or Acute on Chronic? @ -Acute Uncomplicated (without systemic symptoms) or Complicated (systemic symptoms)? @ -Uncomplicated Side effects of treatment? @ -None Exacerbation, Progression, or Severe Exacerbation] @ -No Poses a threat to life or bodily function? @ -Unlikely - Lab Data Result diagrams: 10/03/23 12:32 10/03/23 17:00 Lab Results 10/03/23 10/03/23 10/03/23 Range/Units 12:32 12:32 14:21 WBC 7.4 (3.8-10.6) k/uL RBC 3.80 (3.80-5.40) m/uL Hgb 12.6 (11.4-16.0) gm/dL Hct 36.6 (34.0-46.0) % MCV 96.1 (80.0-100.0) fL MCH 33.2 (25.0-35.0) pg MCHC 34.5 (31.0-37.0) g/dL RDW 11.7 (11.5-15.5) % Plt Count 381 (150-450) k/uL MPV 7.6 Neutrophils % 68 % Lymphocytes % 21 % Monocytes % 6 % Eosinophils % 4 % Basophils % 1 % Neutrophils # 5.0 (1.3-7.7) k/uL Lymphocytes # 1.5 (1.0-4.8) k/uL Monocytes # 0.4 (0-1.0) k/uL Eosinophils # 0.3 (0-0.7) k/uL Basophils # 0.0 (0-0.2) k/uL Sodium 140 (137-145) mmol/L Potassium 5.8 H 1.3 L* (3.5-5.1) mmol/L Chloride 106 (98-107) mmol/L Carbon Dioxide 26 (22-30) mmol/L Anion Gap 8 mmol/L BUN 10 (7-17) mg/dL Creatinine 0.56 (0.52-1.04) mg/dL Est GFR (CKD-EPI)AfAm >90 (>60 ml/min/1.73 sqM) Est GFR (CKD-EPI)NonAf >90 (>60 ml/min/1.73 sqM) Glucose 101 H (74-99) mg/dL Calcium 9.1 (8.4-10.2) mg/dL Total Bilirubin 1.1 (0.2-1.3) mg/dL AST 49 H (14-36) U/L ALT 20 (4-34) U/L Alkaline Phosphatase 71 (38-126) U/L Total Protein 8.0 (6.3-8.2) g/dL Albumin 3.8 (3.5-5.0) g/dL Amylase 46 (30-110) U/L Lipase 58 (23-300) U/L Urine Color Urine Appearance (Clear) Urine pH (5.0-8.0) Ur Specific [place] (1.001-1.035) Urine Protein (Negative) Urine Glucose (UA) (Negative) Urine Ketones (Negative) Urine Blood (Negative) Urine Nitrite (Negative) Urine Bilirubin (Negative) Urine Urobilinogen (<2.0) mg/dL Ur Leukocyte Esterase (Negative) Urine RBC (0-5) /hpf Urine WBC (0-5) /hpf Ur Squamous Epith Cells (0-4) /hpf Urine Mucus (None) /hpf 10/03/23 10/03/23 Range/Units 14:37 17:00 WBC (3.8-10.6) k/uL RBC (3.80-5.40) m/uL Hgb (11.4-16.0) gm/dL Hct (34.0-46.0) % MCV (80.0-100.0) fL MCH (25.0-35.0) pg MCHC (31.0-37.0) g/dL RDW (11.5-15.5) % Plt Count (150-450) k/uL MPV Neutrophils % % Lymphocytes % % Monocytes % % Eosinophils % % Basophils % % Neutrophils # (1.3-7.7) k/uL Lymphocytes # (1.0-4.8) k/uL Monocytes # (0-1.0) k/uL Eosinophils # (0-0.7) k/uL Basophils # (0-0.2) k/uL Sodium (137-145) mmol/L Potassium 4.1 (3.5-5.1) mmol/L Chloride (98-107) mmol/L Carbon Dioxide (22-30) mmol/L Anion Gap mmol/L BUN (7-17) mg/dL Creatinine (0.52-1.04) mg/dL Est GFR (CKD-EPI)AfAm (>60 ml/min/1.73 sqM) Est GFR (CKD-EPI)NonAf (>60 ml/min/1.73 sqM) Glucose (74-99) mg/dL Calcium (8.4-10.2) mg/dL Total Bilirubin (0.2-1.3) mg/dL AST (14-36) U/L ALT (4-34) U/L Alkaline Phosphatase (38-126) U/L Total Protein (6.3-8.2) g/dL Albumin (3.5-5.0) g/dL Amylase (30-110) U/L Lipase (23-300) U/L Urine Color Light Yellow Urine Appearance Clear (Clear) Urine pH 7.0 (5.0-8.0) Ur Specific [place] 1.045 H (1.001-1.035) Urine Protein Negative (Negative) Urine Glucose (UA) Negative (Negative) Urine Ketones Negative (Negative) Urine Blood Moderate H (Negative) Urine Nitrite Negative (Negative) Urine Bilirubin Negative (Negative) Urine Urobilinogen <2.0 (<2.0) mg/dL Ur Leukocyte Esterase Negative (Negative) Urine RBC 1 (0-5) /hpf Urine WBC <1 (0-5) /hpf Ur Squamous Epith Cells 5 H (0-4) /hpf Urine Mucus Rare H (None) /hpf Disposition Clinical Impression: Post-op pain Disposition: HOME SELF-CARE Condition: Good Prescriptions: Amoxic-Pot Clav 875-125Mg [Augmentin 875-125] 1 tab PO Q12HR 7 Days #14 tab Is patient prescribed a controlled substance at d/c from ED?: No Referrals: Renzo Hubbard MD [Primary Care Provider] - 1-2 days Time of Disposition: 17:25
[2023-10-03] MEDS: MORPHINE SULFATE 4 MG/ML SYRINGE IVP STA ×3 (12:52→17:04)
[2023-10-03] MEDS: ONDANSETRON 4 MG/2 ML VIAL IVP STA (12:53)
[2023-10-03] MEDS: SODIUM CHLORIDE 0.9% 1,000 ML IV STA (12:53)
--- NOTE | 2023-10-03 13:54 | CT ---
EXAMINATION TYPE: CT abdomen pelvis w con DATE OF EXAM: 10/03/2023 COMPARISON: 09/29/2023 HISTORY: Abdominal pain. post op with vaishali drain CT DLP: 834.4 mGycm CONTRAST: CT scan of the abdomen and pelvis is performed without Oral Contrast and with IV Contrast, patient in jected with 100 ml mL of Isovue 300. FINDINGS: LUNG BASES-: No visible nodule. No infiltrate. LIVER/GB: No calcified gallstones. No space occupying hepatic lesion. Biliary tree is of normal ca liber. PANCREAS: No inflammation. No distinct mass. SPLEEN: No splenic enlargement. No lesion seen. ADRENALS: No nodule. No thickening. KIDNEYS/BLADDER: No hydronephrosis. No nephrolithiasis. No distinct renal mass. Urinary bladder g rossly unremarkable. BOWEL: VAISHALI drain is noted within the right lower quadrant. There is persistent strandy attenuation wit hin the right lower quadrant with phlegmon. No obvious abscess. Small and large bowel appear to be of normal caliber. No evidence of free air. GENITAL ORGANS: Cystic structure posterior to the left adnexal region measuring 2.1 cm. Uterus and ri ght ovary are unremarkable. LYMPH NODES: No greater than 1cm abdominal or pelvic lymph nodes are appreciated. AORTA: No significant abnormality. OSSEOUS STRUCTURES: No significant abnormality is seen. OTHER: No significant additional abnormality is seen. IMPRESSION: 1. VAISHALI drain is noted within the right lower quadrant. There is persistent strandy attenuation within the right lower quadrant with phlegmon. No obvious abscess.
[2023-10-03 14:02] LABS: ALT 20 U/L (4-34); AST 49 U/L (14-36); African American GFR (CKD) >90 (>60 ml/min/1.73 sqM); Albumin 3.8 g/dL (3.5-5.0); Alkaline Phosphatase 71 U/L (38-126); Amylase 46 U/L (30-110); Anion Gap 8 mmol/L; Blood Urea Nitrogen 10 mg/dL (7-17); Calcium 9.1 mg/dL (8.4-10.2); Carbon Dioxide 26 mmol/L (22-30); Chloride 106 mmol/L (98-107); Glucose 101 mg/dL (74-99); Lipase 58 U/L (23-300); Non-African American GFR(CKD) >90 (>60 ml/min/1.73 sqM); Sodium 140 mmol/L (137-145); Total Bilirubin 1.1 mg/dL (0.2-1.3)
[2023-10-03 14:14] LABS: Potassium 5.8 mmol/L (3.5-5.1)
[2023-10-03 14:55] LABS: Basophils % (A) 1 %; Eosinophils # (A) 0.3 k/uL (0-0.7); Eosinophils % (A) 4 %; HCT 36.6 % (34.0-46.0); HGB 12.6 gm/dL (11.4-16.0); Lymphocytes # (A) 1.5 k/uL (1.0-4.8); Lymphocytes % (A) 21 %; MCH 33.2 pg (25.0-35.0); MCHC 34.5 g/dL (31.0-37.0); MCV 96.1 fL (80.0-100.0); Mean Platelet Volume 7.6; Monocytes # (A) 0.4 k/uL (0-1.0); Monocytes % (A) 6 %; Neutrophils % (A) 68 %; Platelet Count 381 k/uL (150-450); RDW 11.7 % (11.5-15.5); WBC 7.4 k/uL (3.8-10.6)
[2023-10-03 15:02] LABS: Appearance,Urine Clear (Clear); Bilirubin,Urine Negative (Negative); Blood,Urine Moderate (Negative); Color,Urine Light Yellow; Glucose,Urine (UA) Negative (Negative); Ketones,Urine Negative (Negative); Leukocyte Esterase,Urine Negative (Negative); Mucus,Urine Rare /hpf; Nitrite,Urine Negative (Negative); Protein,Urine Negative (Negative); RBC,Urine 1 /hpf (0-5); Specific Gravity,Urine 1.045 (1.001-1.035); Squamous Epithelial Cell,Urine 5 /hpf (0-4); Urobilinogen,Urine <2.0 mg/dL (<2.0); WBC,Urine <1 /hpf (0-5)
[2023-10-03] MEDS: AMOXIC-POT CLAV 875-125MG 1 EACH TAB PO STA (15:15)
[2023-10-03] MEDS: ACET/COD 300 MG/30 MG STARTER PACK 6 TAB BTL PO STA (16:50)
[2023-10-03 18:16] VITALS: BP 166/108
== END 2023-10-03 18:06 | disposition home or self-care (01) ==
LOC: EC 11:45
DX: G89.18 Other acute postprocedural pain (principal); R10.9 Unspecified abdominal pain; J45.909 Unspecified asthma, uncomplicated; F17.290 Nicotine dependence, other tobacco product, uncomplicated; Z88.2 Allergy status to sulfonamides; Z88.1 Allergy status to other antibiotic agents; Z91.018 Allergy to other foods
CPT/HCPCS: 36415; 80053; 82150; 83690; 84132; 85025; 81001; 74177; 99285; 96374; 96375; 96376; 96361; J2270; J2405; Q9967

== ENCOUNTER 2023-10-07 03:51 | Emergency (ER) | payer OTHER ==
--- NOTE | 2023-10-07 04:15 | ED ---
General Adult HPI - General Chief complaint: Recheck/Abnormal Lab/Rx Stated complaint: EPI, BAG LEAKING Time Seen by Provider: 10/07/23 04:00 Source: patient Mode of arrival: ambulatory Limitations: no limitations - History of Present Illness Initial comments: 37-year-old female presents to the emergency department reporting drainage. Patient had an appendectomy on September 29. She had a URSULA drain placed because her appendix ruptured. She has had a dressing over the top of the URSULA drain. Reports that she is supposed to get it out tomorrow. This evening the patient noted that she had some discharge on her dressing and was concerned that it was leaking. She has not changed the dressing since she was discharged from the hospital. She denies fevers. No abdominal pain. No other alleviating, precipitating or modifying factors - Related Data Previous Rx's Medication Instructions Recorded Acetaminophen Tab [Tylenol] 1,000 mg PO Q6HR PRN #30 tablet 10/01/23 Ibuprofen [Motrin] 600 mg PO Q8HR PRN #30 tab 10/01/23 amLODIPine [Norvasc] 5 mg PO DAILY 90 Days #90 tab 10/02/23 Amoxic-Pot Clav 875-125Mg 1 tab PO Q12HR 7 Days #14 tab 10/03/23 [Augmentin 875-125] Ondansetron Odt [Zofran Odt] 4 mg PO Q8HR PRN #10 tab 10/12/23 Allergies Allergy/AdvReac Type Severity Reaction Status Date / Time banana Allergy Anaphylaxis Verified 10/12/23 11:01 Sulfa (Sulfonamide Allergy Anaphylaxis Verified 10/12/23 11:01 Antibiotics) sulfamethoxazole Allergy Anaphylaxis Verified 10/12/23 11:01 [From Bactrim] trimethoprim [From Bactrim] Allergy Anaphylaxis Verified 10/12/23 11:01 Review of Systems ROS Statement: Those systems with pertinent positive or pertinent negative responses have been documented in the HPI. ROS Other: All systems not noted in ROS Statement are negative. Past Medical History Past Medical History: Asthma, Seizure Disorder History of Any Multi-Drug Resistant Organisms: None Reported Past Surgical History: No Surgical Hx Reported, Appendectomy Past Psychological History: Anxiety, Bipolar, Depression, Schizophrenia Smoking Status: Current every day smoker, Vaper Past Alcohol Use History: None Reported Past Drug Use History: None Reported General Exam Limitations: no limitations General appearance: alert, in no apparent distress Head exam: Present: atraumatic, normocephalic, normal inspection Eye exam: Present: normal appearance, PERRL, EOMI. Absent: scleral icterus, conjunctival injection, periorbital swelling ENT exam: Present: normal exam, mucous membranes moist Neck exam: Present: normal inspection. Absent: tenderness, meningismus, lymphadenopathy Respiratory exam: Present: normal lung sounds bilaterally. Absent: respiratory distress, wheezes, rales, rhonchi, stridor Cardiovascular Exam: Present: regular rate, normal rhythm, normal heart sounds. Absent: systolic murmur, diastolic murmur, rubs, gallop, clicks GI/Abdominal exam: Present: soft, normal bowel sounds, other (Midline incision with URSULA drain. A small amount of drainage from around the URSULA site. Dressing is saturated however most of the drainage is old and dried). Absent: distended, tenderness, guarding, rebound, rigid Extremities exam: Present: normal inspection, full ROM, normal capillary refill. Absent: tenderness, pedal edema, joint swelling, calf tenderness Back exam: Present: normal inspection Neurological exam: Present: alert, oriented X3, CN II-XII intact Psychiatric exam: Present: normal affect, normal mood Skin exam: Present: warm, dry, intact, normal color. Absent: rash Course Vital Signs 10/07/23 03:55 Temperature 98.4 F Pulse Rate 104 H Respiratory 18 Rate Blood Pressure 167/113 O2 Sat by Pulse 100 Oximetry Medical Decision Making - Medical Decision Making Was pt. sent in by a medical professional or institution (, PA, CARBURETOR MECHANIC, urgent care, hospital, or long term...) When possible be specific @ -No Did you speak to anyone other than the patient for history (EMS, parent, family, police, friend...)? What history was obtained from this source @ -No Did you review nursing and triage notes (agree or disagree)? Why? @ -I reviewed and agree with nursing and triage notes Were old charts reviewed (outside hosp., previous admission, EMS record, old EKG, old radiological studies, urgent care reports/EKG's, long term records)? Report findings @ -I reviewed patient's operative note from the Differential Diagnosis (chest pain, altered mental status, abdominal pain women, abdominal pain men, vaginal bleeding, weakness, fever, dyspnea, syncope, headache, dizziness, GI bleed, back pain, seizure, CVA, palpatations, mental health, musculoskeletal)? @ -Cellulitis, seroma, abscess, malfunctioning URSULA drain EKG interpreted by me (3pts min.). @ -Not done X-rays interpreted by me (1pt min.). @ -None done CT interpreted by me (1pt min.). @ -None done U/S interpreted by me (1pt. min.). @ -None done What testing was considered but not performed or refused? (CT, X-rays, U/S, labs)? Why? @ -None What meds were considered but not given or refused? Why? @ -None Did you discuss the management of the patient with other professionals (sherley boo i.e. , PA, CARBURETOR MECHANIC, lab, RT, psych nurse, director of social work, treasury agent, teacher, retail loss prevention officer, case finisher)? Give summary @ -No Was smoking cessation discussed for >3mins.? @ -No Was critical care preformed (if so, how long)? @ -No Were there social determinants of health that impacted care today? How? (Homelessness, low income, unemployed, alcoholism, drug addiction, transportation, low edu. Level, literacy, decrease access to med. care, senior living, rehab)? @ -No Was there de-escalation of care discussed even if they declined (Discuss DNR or withdrawal of care, Hospice)? DNR status @ -No What co-morbidities impacted this encounter? (DM, HTN, Smoking, COPD, CAD, Cancer, CVA, ARF, Chemo, Hep., AIDS, mental health diagnosis, sleep apnea, morbid obesity)? @ -None Was patient admitted / discharged? Hospital course, mention meds given and route, prescriptions, significant lab abnormalities, going to OR and other pertinent info. @ -Discharged. Upon arrival patient placed into room 28. Thorough history and physical exam was performed. I did remove the patient's dressing. Most of the drainage appears old. I did redress the patient's site. She does have an appointment to follow-up with her surgeon in office today. Instructed to continue to keep that appointment. Return for any new or worsening symptoms Undiagnosed new problem with uncertain prognosis? @ -No Drug Therapy requiring intensive monitoring for toxicity (Heparin, Nitro, Insulin, Cardizem)? @ -No Were any procedures done? @ -No Diagnosis/symptom? @ -Evaluation of surgical site, status post appendectomy with URSULA drain Acute, or Chronic, or Acute on Chronic? @ -Acute Uncomplicated (without systemic symptoms) or Complicated (systemic symptoms)? @ -Uncomplicated Side effects of treatment? @ -No Exacerbation, Progression, or Severe Exacerbation? @ -No Poses a threat to life or bodily function? How? (Chest pain, [place], [place], pneumonia, PE, COPD, DKA, ARF, appy, cholecystitis, CVA, Diverticulitis, Homicidal, [place] icidal, threat to staff... and all critical care pts) @ -No Disposition Clinical Impression: S/P appendectomy, URSULA drain bleeding Disposition: HOME SELF-CARE Condition: Stable Instructions (If sedation given, give patient instructions): Laparoscopic Appendectomy (DC) Additional Instructions: Please follow-up with Dr. Landaverde at your scheduled appointment today to have the drain removed. Return for any new or worsening symptoms Is patient prescribed a controlled substance at d/c from ED?: No Referrals: Yomi Muller MD [REFERRING] - 1-2 days Jack Landaverde MD [STAFF PHYSICIAN] - 1-2 days Time of Disposition: 04:45
[2023-10-07 04:21] VITALS: BP 167/113; PULSE 104; RESP 18; TEMP 98.4
== END 2023-10-07 04:51 | disposition home or self-care (01) ==
LOC: EC 03:51
DX: T82.838A Hemorrhage due to vascular prosthetic devices, implants and grafts, initial encounter (principal); J45.909 Unspecified asthma, uncomplicated; F17.290 Nicotine dependence, other tobacco product, uncomplicated; Z91.018 Allergy to other foods; Z88.2 Allergy status to sulfonamides; Z88.1 Allergy status to other antibiotic agents; Z86.59 Personal history of other mental and behavioral disorders; Z90.49 Acquired absence of other specified parts of digestive tract
CPT/HCPCS: 99283

== ENCOUNTER 2023-10-12 10:54 | Emergency (ER) | payer OTHER ==
--- NOTE | 2023-10-12 11:03 | ED ---
General Adult HPI - General Source: patient, EMS, RN notes reviewed Mode of arrival: EMS Limitations: no limitations <Liliya Pringle - Last Filed: 10/12/23 11:03> - General Source: patient, EMS, RN notes reviewed Mode of arrival: EMS Limitations: no limitations <Valerio Contreras - Last Filed: 10/12/23 12:26> - General Chief complaint: Fever Stated complaint: Fever, Flu Symptoms Time Seen by Provider: 10/12/23 11:01 - History of Present Illness Initial comments: This is a 37 year old female who presents to the emergency department for fevers, body aches, nausea, and vomiting. States that symptoms started 3 days ago. She is unsure how high the fever has gotten and she denies any sick contacts. (Liliya Pringle) - Related Data Previous Rx's Medication Instructions Recorded Acetaminophen Tab [Tylenol] 1,000 mg PO Q6HR PRN #30 tablet 10/01/23 Ibuprofen [Motrin] 600 mg PO Q8HR PRN #30 tab 10/01/23 amLODIPine [Norvasc] 5 mg PO DAILY 90 Days #90 tab 10/02/23 Amoxic-Pot Clav 875-125Mg 1 tab PO Q12HR 7 Days #14 tab 10/03/23 [Augmentin 875-125] Ondansetron Odt [Zofran Odt] 4 mg PO Q8HR PRN #10 tab 10/12/23 Allergies Allergy/AdvReac Type Severity Reaction Status Date / Time banana Allergy Anaphylaxis Verified 10/12/23 11:01 Sulfa (Sulfonamide Allergy Anaphylaxis Verified 10/12/23 11:01 Antibiotics) sulfamethoxazole Allergy Anaphylaxis Verified 10/12/23 11:01 [From Bactrim] trimethoprim [From Bactrim] Allergy Anaphylaxis Verified 10/12/23 11:01 Review of Systems ROS Other: All systems not noted in ROS Statement are negative. <Liliya Pringle - Last Filed: 10/12/23 11:03> ROS Other: All systems not noted in ROS Statement are negative. <Valerio Contreras - Last Filed: 10/12/23 12:26> ROS Statement: Those systems with pertinent positive or pertinent negative responses have been documented in the HPI. Past Medical History Past Medical History: Asthma, Hypertension, Seizure Disorder History of Any Multi-Drug Resistant Organisms: None Reported Past Surgical History: No Surgical Hx Reported, Appendectomy, Cholecystectomy Past Psychological History: Anxiety, Bipolar, Depression, Schizophrenia Smoking Status: Current every day smoker, Vaper Past Alcohol Use History: None Reported Past Drug Use History: None Reported <Liliya Pringle - Last Filed: 10/12/23 11:03> General Exam Limitations: no limitations <Liliya Pringle - Last Filed: 10/12/23 11:03> General appearance: alert, in no apparent distress Head exam: Present: atraumatic, normocephalic, normal inspection Eye exam: Present: normal appearance, PERRL, EOMI. Absent: scleral icterus, conjunctival injection, periorbital swelling ENT exam: Present: normal exam, normal oropharynx, mucous membranes moist Neck exam: Present: normal inspection, full ROM. Absent: tenderness, me ningismus, lymphadenopathy Respiratory exam: Present: normal lung sounds bilaterally. Absent: respiratory distress, wheezes, rales, rhonchi, stridor Cardiovascular Exam: Present: regular rate, normal rhythm, normal heart sounds. Absent: systolic murmur, diastolic murmur, rubs, gallop, clicks GI/Abdominal exam: Present: soft, normal bowel sounds. Absent: distended, tenderness, guarding, rebound, rigid <Valerio Contreras - Last Filed: 10/12/23 12:26> - General Exam Comments Initial Comments: Visual Physical Exam Vital signs reviewed General: Well-appearing, nontoxic, no acute distress. Head: Normocephalic, atraumatic Eyes: PERRLA, EOMI ENT: Airway patent Chest: Nonlabored breathing Skin: No visual rash, normal skin tone Neuro: Alert and oriented 3 Musculoskeletal: No gross abnormalities (Liliya Pringle) Course Vital Signs 10/12/23 10/12/23 10:56 12:03 Temperature 100.2 F H Pulse Rate 81 76 Respiratory 18 18 Rate Blood Pressure 163/86 O2 Sat by Pulse 98 Oximetry Medical Decision Making <Liliya Pringle - Last Filed: 10/12/23 11:03> <Valerio Contreras - Last Filed: 10/12/23 12:26> - Medical Decision Making I performed the QuickNote portion of this chart. Signed Liliya Pringle PA-C. (Liliya Pringle) Was pt. sent in by a medical professional or institution (ROBER Keith, ASSISTANT PROFESSOR OF BIOCHEMISTRY, urgent care, hospital, or halfway...) When possible be specific @ -No Did you speak to anyone other than the patient for history (EMS, parent, family, police, friend...)? What history was obtained from this source @ -No Did you review nursing and triage notes (agree or disagree)? Why? @ -I reviewed and agree with nursing and triage notes Were old charts reviewed (outside hosp., previous admission, EMS record, old EKG, old radiological studies, urgent care reports/EKG's, halfway records)? Report findings @ -[Reviewed recent admission Differential Diagnosis (chest pain, altered mental status, abdominal pain women, abdominal pain men, vaginal bleeding, weakness, fever, dyspnea, syncope, headache, dizziness, GI bleed, back pain, seizure, CVA, palpatations, mental health, musculoskeletal)? @ -COVID 19, RSV, influenza, pneumonia, acute bronchitis, URI, this list is not all inclusive EKG interpreted by me (3pts min.). @ -None X-rays interpreted by me (1pt min.). @ -[None done CT interpreted by me (1pt min.). @ -None done U/S interpreted by me (1pt. min.). @ -None done What testing was considered but not performed or refused? (CT, X-rays, U/S, labs)? Why? @ -None What meds were considered but not given or refused? Why? @ -None Did you discuss the management of the patient with other professionals (professionals i.e. ROBER Keith, ASSISTANT PROFESSOR OF BIOCHEMISTRY, lab, RT, psych nurse, older adult social work specialist, nursing home assistant, teacher, special assets officer, pillowcase folder)? Give summary @ -No Was smoking cessation discussed for >3mins.? @ -No Was critical care preformed (if so, how long)? @ -No Were there social determinants of health that impacted care today? How? (Homelessness, low income, unemployed, alcoholism, drug addiction, transportation, low edu. Level, literacy, decrease access to med. care, intermediate, rehab)? @ -No Was there de-escalation of care discussed even if they declined (Discuss DNR or withdrawal of care, Hospice)? DNR status @ -No What co-morbidities impacted this encounter? (DM, HTN, Smoking, COPD, CAD, Cancer, CVA, ARF, Chemo, Hep., AIDS, mental health diagnosis, sleep apnea, morbid obesity)? @ -None Was patient admitted / discharged? Hospital course, mention meds given and [place], prescriptions, significant lab abnormalities, going to OR and other pertinent info. @ -[Discharge patient is influenza A positive but discharged in stable condition with supportive treatment Undiagnosed new problem with uncertain prognosis? @ -No Drug Therapy requiring intensive monitoring for toxicity (Heparin, Nitro, Insulin, Cardizem)? @ -No Were any procedures done? @ -No Diagnosis/symptom? @ -[Influenza a Acute, or Chronic, or Acute on Chronic? @ -Acute Uncomplicated (without systemic symptoms) or Complicated (systemic symptoms)? @ -[Uncomplicated Side effects of treatment? @ -[No Exacerbation, Progression, or Severe Exacerbation? @ -No Poses a threat to life or bodily function? How? (Chest pain, [place], [place], pneumonia, PE, COPD, DKA, ARF, appy, cholecystitis, CVA, Diverticulitis, Homicidal, Suicidal, threat to staff... and all critical care pts) @ -No (Valerio Contreras) - Lab Data Lab Results 10/12/23 Range/Units 11:07 Influenza Type A (PCR) Detected A (Not Detectd) Influenza Type B (PCR) Not Detected (Not Detectd) RSV (PCR) Not Detected (Not Detectd) SARS-CoV-2 (PCR) Not Detected (Not Detectd) Disposition <Liliya Pringle - Last Filed: 10/12/23 11:03> Is patient prescribed a controlled substance at d/c from ED?: No Time of Disposition: 11:59 <Valerio Contreras - Last Filed: 10/12/23 12:26> Clinical Impression: Influenza Disposition: HOME SELF-CARE Condition: Stable Instructions (If sedation given, give patient instructions): Influenza (ED) Additional Instructions: Please return to the Emergency Department if symptoms worsen or any other concerns. Prescriptions: Ondansetron Odt [Zofran Odt] 4 mg PO Q8HR PRN #10 tab PRN Reason: Nausea Referrals: Renzo Hubbard MD [Primary Care Provider] - 1-2 days
[2023-10-12 11:07] VITALS: BP 163/86; RESP 18; TEMP 100.2
[2023-10-12] MEDS: ONDANSETRON 4 MG/2 ML VIAL IM STA (11:17)
[2023-10-12] MEDS: KETOROLAC 15 MG/ML 1 ML VIAL IM STA (11:17)
[2023-10-12 12:06] VITALS: PULSE 76
== END 2023-10-12 12:16 | disposition home or self-care (01) ==
LOC: EC 10:54
DX: J10.1 Influenza due to other identified influenza virus with other respiratory manifestations (principal); I10 Essential (primary) hypertension; J45.909 Unspecified asthma, uncomplicated; F17.290 Nicotine dependence, other tobacco product, uncomplicated; Z86.59 Personal history of other mental and behavioral disorders; Z20.822 Contact with and (suspected) exposure to COVID-19; Z88.2 Allergy status to sulfonamides; Z88.1 Allergy status to other antibiotic agents; Z91.018 Allergy to other foods
CPT/HCPCS: 87636; 99284; 96372 ×2; J2405; J1885

== ENCOUNTER 2024-02-18 17:27 | Observation (INO) | payer OTHER ==
--- NOTE | 2024-02-18 18:22 | ED ---
General Adult HPI - General Chief complaint: Extremity Injury, Upper Stated complaint: L hand swollen Time Seen by Provider: 02/18/24 17:36 Source: patient, RN notes reviewed Mode of arrival: ambulatory Limitations: no limitations - History of Present Illness Initial comments: 38-year-old female presents to the emergency department for evaluation of left hand swelling. Patient states that she noticed this about 2 days ago. Reports diffuse swelling to the back of the hand along with redness. She denies significant pain to the hand. There is a lump on the lateral aspect of her left arm as well. She states that she is unsure if she was bitten by a bug while outside. She denies fever, chills. Denies nausea, vomiting. - Related Data Previous Rx's Medication Instructions Recorded Acetaminophen Tab [Tylenol] 1,000 mg PO Q6HR PRN #30 tablet 10/01/23 Ibuprofen [Motrin] 600 mg PO Q8HR PRN #30 tab 10/01/23 amLODIPine [Norvasc] 5 mg PO DAILY 90 Days #90 tab 10/02/23 Amoxic-Pot Clav 875-125Mg 1 tab PO Q12HR 7 Days #14 tab 10/03/23 [Augmentin 875-125] Ondansetron Odt [Zofran Odt] 4 mg PO Q8HR PRN #10 tab 10/12/23 Allergies Allergy/AdvReac Type Severity Reaction Status Date / Time banana Allergy Anaphylaxis Verified 02/18/24 17:35 Sulfa (Sulfonamide Allergy Anaphylaxis Verified 02/18/24 17:35 Antibiotics) sulfamethoxazole Allergy Anaphylaxis Verified 02/18/24 17:35 [From Bactrim] trimethoprim [From Bactrim] Allergy Anaphylaxis Verified 02/18/24 17:35 Review of Systems ROS Statement: Those systems with pertinent positive or pertinent negative responses have been documented in the HPI. ROS Other: All systems not noted in ROS Statement are negative. Past Medical History Past Medical History: Asthma, Hypertension, Seizure Disorder History of Any Multi-Drug Resistant Organisms: None Reported Past Surgical History: No Surgical Hx Reported, Appendectomy, Cholecystectomy Past Psychological History: Anxiety, Bipolar, Depression, Schizophrenia Smoking Status: Current every day smoker, Vaper Past Alcohol Use History: None Reported Past Drug Use History: None Reported General Exam Limitations: no limitations General appearance: alert, in no apparent distress Head exam: Present: atraumatic, normocephalic, normal inspection Eye exam: Present: normal appearance, PERRL, EOMI. Absent: scleral icterus, conjunctival injection, periorbital swelling ENT exam: Present: normal exam, mucous membranes moist Respiratory exam: Present: normal lung sounds bilaterally. Absent: respiratory distress, wheezes, rales, rhonchi, stridor Cardiovascular Exam: Present: normal rhythm, tachycardia, normal heart sounds. Absent: systolic murmur, diastolic murmur, rubs, gallop, clicks Extremities exam: Present: normal capillary refill, other (Redness and diffuse swelling to the left hand, radial pulses 2+). Absent: full ROM, tenderness, pedal edema, joint swelling, calf tenderness Back exam: Present: normal inspection Neurological exam: Present: alert, oriented X3 Psychiatric exam: Present: normal affect, normal mood Skin exam: Present: warm, dry, intact, erythema, other (Erythema and swelling to the left hand). Absent: normal color, rash Course Vital Signs 02/18/24 02/18/24 17:33 22:33 Temperature 97.8 F 98.0 F Pulse Rate 113 H 95 Respiratory 20 18 Rate Blood Pressure 145/90 130/88 O2 Sat by Pulse 100 100 Oximetry Medical Decision Making - Medical Decision Making Was pt. sent in by a medical professional or institution ([facility], [facility], urgent care, hospital, or snf...) When possible be specific @ -No Did you speak to anyone other than the patient for history (EMS, parent, family, police, friend...)? What history was obtained from this source @ -No Did you review nursing and triage notes (agree or disagree)? Why? @ -I reviewed and agree with nursing and triage notes Were old charts reviewed (outside hosp., previous admission, EMS record, old EKG, old radiological studies, urgent care reports/EKG's, snf records)? Report findings @ -No old charts were reviewed Differential Diagnosis (chest pain, altered mental status, abdominal pain women, abdominal pain men, vaginal bleeding, weakness, fever, dyspnea, syncope, headache, dizziness, GI bleed, back pain, seizure, CVA, palpatations, mental he alth, musculoskeletal)? @ -Differential Musculoskeletal Muscular strain, contusion, ligament sprain, fracture, arthritis, septic arthritis, bursitis, cellulitis, muscle spasm, nerve compression, DVT, arterial occlusion, herpes zoster, electrolyte abnormality, tumor.... This is not meant to be in all inclusive list EKG interpreted by me (3pts min.). @ -None X-rays interpreted by me (1pt min.). @ -X-ray of the hand shows soft tissue swelling without acute fracture or dislocation CT interpreted by me (1pt min.). @ -None done U/S interpreted by me (1pt. min.). @ -Ultrasound of the hand shows possible fluid collection versus hematoma What testing was considered but not performed or refused? (CT, X-rays, U/S, labs)? Why? @ -None What meds were considered but not given or refused? Why? @ -None Did you discuss the management of the patient with other professionals (professionals i.e. , PA, LOG MARKER, lab, RT, psych nurse, sexual assault social worker, preparer making department, teacher, correction officer, behavioral health case manager)? Give summary @ -Case discussed with Moe Hernandez with [facility] who is accepting of the admission Was smoking cessation discussed for >3mins.? @ -No Was critical care preformed (if so, how long)? @ -No Were there social determinants of health that impacted care today? How? (Homelessness, low income, unemployed, alcoholism, drug addiction, transportation, low edu. Level, literacy, decrease access to med. care, retirement, rehab)? @ -No Was there de-escalation of care discussed even if they declined (Discuss DNR or withdrawal of care, Hospice)? DNR status @ -No What co-morbidities impacted this encounter? (DM, HTN, Smoking, COPD, CAD, Cancer, CVA, ARF, Chemo, Hep., AIDS, mental health diagnosis, sleep apnea, morbid obesity)? @ -None Was patient admitted / discharged? Hospital course, mention meds given and route, prescriptions, significant lab abnormalities, going to OR and other pertinent info. @ -Admitted. Reports to the emergency department for evaluation of for left hand redness and swelling x 2 days. She states that she was unsure if she had gotten bitten by something while outside. She does deny fever, chills. Laboratory studies obtained significant for mild leukocytosis at 12.2, lactic acid 2.0. X-ray obtained shows no evidence of acute fracture or dislocation. Patient will be admitted for IV antibiotics. Patient started on Rocephin, vancomycin, provided 2 L of normal saline in the emergency department and maintenance fluids. Case was discussed with Moe Hernandez with [facility] who is accepting of the admission. Case discussed with Dr. Wiley who also evaluated the patient Undiagnosed new problem with uncertain prognosis? @ -No Drug Therapy requiring intensive monitoring for toxicity (Heparin, Nitro, Insulin, Cardizem)? @ -No Were any procedures done? @ -No Diagnosis/symptom? @ -Cellulitis of hand Acute, or Chronic, or Acute on Chronic? @ -acute Uncomplicated (without systemic symptoms) or Complicated (systemic symptoms)? @ -uncomplicated Side effects of treatment? @ -No Exacerbation, Progression, or Severe Exacerbation? @ -No Poses a threat to life or bodily function? How? (Chest pain, [place], [place], pneumonia, PE, COPD, DKA, ARF, appy, cholecystitis, CVA, Diverticulitis, Homicidal, Suicidal, threat to staff... and all critical care pts) @ -No - Lab Data Result diagrams: 02/18/24 18:07 02/18/24 18:07 Lab Results 02/18/24 02/18/24 02/18/24 Range/Units 18:07 18:07 18:07 WBC 12.2 H (3.8-10.6) k/uL RBC 4.23 (3.80-5.40) m/uL Hgb 13.1 (11.4-16.0) gm/dL Hct 41.0 (34.0-46.0) % MCV 97.0 (80.0-100.0) fL MCH 31.0 (25.0-35.0) pg MCHC 32.0 (31.0-37.0) g/dL RDW 12.1 (11.5-15.5) % Plt Count 227 (150-450) k/uL MPV 8.1 Neutrophils % 73 % Lymphocytes % 18 % Monocytes % 5 % Eosinophils % 3 % Basophils % 1 % Neutrophils # 8.9 H (1.3-7.7) k/uL Lymphocytes # 2.1 (1.0-4.8) k/uL Monocytes # 0.6 (0-1.0) k/uL Eosinophils # 0.4 (0-0.7) k/uL Basophils # 0.1 (0-0.2) k/uL Sodium 134 L (137-145) mmol/L Potassium 4.1 (3.5-5.1) mmol/L Chloride 108 H (98-107) mmol/L Carbon Dioxide 20 L (22-30) mmol/L Anion Gap 6 mmol/L BUN 11 (7-17) mg/dL Creatinine 0.54 (0.52-1.04) mg/dL Est GFR (CKD-EPI)AfAm >90 (>60 ml/min/1.73 sqM) Est GFR (CKD-EPI)NonAf >90 (>60 ml/min/1.73 sqM) Glucose 93 (74-99) mg/dL Plasma Lactic Acid David 2.0 (0.7-2.0) mmol/L Calcium 8.7 (8.4-10.2) mg/dL Total Bilirubin 0.4 (0.2-1.3) mg/dL AST 26 (14-36) U/L ALT 26 (4-34) U/L Alkaline Phosphatase 75 (38-126) U/L Total Protein 6.7 (6.3-8.2) g/dL Albumin 3.6 (3.5-5.0) g/dL Disposition Clinical Impression: Cellulitis of hand Disposition: ADMITTED IP TO THIS HOSP Condition: Stable Is patient prescribed a controlled substance at d/c from ED?: No Referrals: Renzo Hubbard MD [Primary Care Provider] - 1-2 days
[2024-02-18 18:56] LABS: Basophils # (A) 0.1 k/uL (0-0.2); Basophils % (A) 1 %; Eosinophils # (A) 0.4 k/uL (0-0.7); Eosinophils % (A) 3 %; HGB 13.1 gm/dL (11.4-16.0); Lymphocytes # (A) 2.1 k/uL (1.0-4.8); Lymphocytes % (A) 18 %; Mean Platelet Volume 8.1; Monocytes # (A) 0.6 k/uL (0-1.0); Monocytes % (A) 5 %; Neutrophils # (A) 8.9 k/uL (1.3-7.7); Neutrophils % (A) 73 %; Platelet Count 227 k/uL (150-450); RBC 4.23 m/uL (3.80-5.40); RDW 12.1 % (11.5-15.5); WBC 12.2 k/uL (3.8-10.6)
--- NOTE | 2024-02-18 19:03 | XR ---
EXAMINATION TYPE: XR hand complete LT DATE OF EXAM: 02/18/2024 CLINICAL HISTORY: pain TECHNIQUE: Frontal, lateral and oblique images of the left hand are obtained. COMPARISON: None. FINDINGS: There is no acute fracture/dislocation evident. The joint spaces appear within normal limi ts. The overlying soft tissue appears unremarkable. IMPRESSION: There is no acute fracture or dislocation. ICD 10 NO FRACTURE, INITIAL EVALUATION
[2024-02-18 19:07] LABS: ALT 26 U/L (4-34); African American GFR (CKD) >90 (>60 ml/min/1.73 sqM); Albumin 3.6 g/dL (3.5-5.0); Anion Gap 6 mmol/L; Blood Urea Nitrogen 11 mg/dL (7-17); Calcium 8.7 mg/dL (8.4-10.2); Carbon Dioxide 20 mmol/L (22-30); Chloride 108 mmol/L (98-107); Glucose 93 mg/dL (74-99); Non-African American GFR(CKD) >90 (>60 ml/min/1.73 sqM); Sodium 134 mmol/L (137-145); Total Bilirubin 0.4 mg/dL (0.2-1.3); Total Protein 6.7 g/dL (6.3-8.2)
--- NOTE | 2024-02-18 19:07 | US ---
EXAMINATION TYPE: US extremity nonvasc mass LT DATE OF EXAM: 02/18/2024 COMPARISON: NONE CLINICAL INDICATION: Female, 38 years old with history of lt forearm mass; Swollen, red anterior surf cuca of left hand, states no injury, questioning bug bite, WBC is elevated TECHNIQUE: Soft tissue scan FINDINGS: Edematous tissue seen with focal complex fluid collection = 2.6 x 0.6 x 2.8cm IMPRESSION: 2.8 x 2.6 x 0.6 cm complex fluid collection in the anterior left hand. Findings could in dicate hematoma or abscess.
[2024-02-18 19:10] LABS: AST 26 U/L (14-36); Alkaline Phosphatase 75 U/L (38-126); Potassium 4.1 mmol/L (3.5-5.1)
[2024-02-18] MEDS ORDERED: VANCOMYCIN IV PER PHARMACY 1 EACH MISC MISCELLANE PRN (20:39)
[2024-02-18] MEDS: SODIUM CHLORIDE 0.9% 2,000 ML IV ONE (21:46)
[2024-02-18] MEDS ORDERED: NALOXONE 0.4 MG/ML 1 ML VIAL IV PRN (22:30)
[2024-02-18] MEDS ORDERED: IBUPROFEN 400 MG TAB PO PRN (22:30)
[2024-02-18] MEDS ORDERED: HYDROmorphone 1 MG/ML 1 ML SYRINGE IVP PRN (22:30)
[2024-02-18] MEDS ORDERED: ONDANSETRON 4 MG/2 ML VIAL IVP PRN (22:30)
[2024-02-18] MEDS ORDERED: ACETAMINOPHEN TAB 325 MG TAB PO PRN (22:30)
[2024-02-18 22:33] VITALS: RESP 18
[2024-02-18] MEDS: VANCOMYCIN 1,500 MG in SODIUM CHLORIDE 0.9% 500 ML 500 ML IVPB ONE (22:36)
[2024-02-18] MEDS: SODIUM CHLORIDE 0.9% 1,000 ML IV SCH (23:29)
[2024-02-19] MEDS: KETOROLAC 15 MG/ML 1 ML VIAL IVP PRN (03:02)
[2024-02-19] MEDS: VANCOMYCIN 1,250 MG in SODIUM CHLORIDE 0.9% 250 ML IVPB SCH (06:59)
--- NOTE | 2024-02-19 10:02 | CT ---
EXAMINATION TYPE: CT hand LT wo con DATE OF EXAM: 02/19/2024 COMPARISON: None HISTORY: pain, redness and swelling of left hand CT DLP: 240.6 mGycm Automated exposure control for dose reduction was used. Contrast: None Technique: Axial images 2 mm thick sections. Reconstructed images in the coronal and sagittal planes. 3-D reconstructed images are performed. FINDINGS: There is a cyst within the lunate. No acute osseous abnormalities. Joint spaces appear preserved. No displaced fractures identified. There is diffuse soft tissue swelling at the wrist and dorsum of hand. Underlying soft tissues are ot herwise unremarkable. No suspicious abscess formation is identified. IMPRESSION: 1. NO SUSPICIOUS ABSCESS WITHIN THE SOFT TISSUES. DIFFUSE SOFT TISSUE SWELLING IS PRESENT GREATER ROSA ISELA NG THE DORSUM OF THE HAND AND WRIST. 2. NO UNDERLYING OSSEOUS ABNORMALITY
--- NOTE | 2024-02-19 10:35 | P.HPIM ---
History of Present Illness H&P Date: 02/19/24 History of present illness; patient is a 38-year-old lady with significant past medical history for hypertension presented to the ER for complaint of left hand swelling. Patient stated that she was all right 2 days back when started noticing that her hand was getting swollen. Patient was also feeling increased warmth in her left hand. Patient was also having increasing pain in her left hand. Patient was unsure whether she got bit by a insect. Patient denies any trauma. There was no complaint of fever or chills. Denies any nausea, vomiting abdominal pain. There is no complaint of chest pain or shortness of breath. Because of the symptoms, patient came to the ER Initial lab work done in the ER showed WBC 12.2, hemoglobin 13.1, platelet count 227, sodium 134, potassium 4.1, BUN 11, creatinine 0.54, lactate 2, AST 26, ALT 26 Ultrasound left upper extremity done showed 2.8 x 2.6 x 0.6 complex fluid collection in the anterior left hand X-ray of the hand done showed no fracture Patient admitted to internal medicine service REVIEW OF SYSTEMS: CONSTITUTIONAL: No fever, no malaise, no fatigue. HEENT: No recent visual problems or hearing problems. Denied any sore throat. CARDIOVASCULAR: No chest pain, orthopnea, PND, no palpitations, no syncope. PULMONARY: No shortness of breath, no cough, no hemoptysis. GASTROINTESTINAL: No diarrhea, no nausea, no vomiting, no abdominal pain. NEUROLOGICAL: No headaches, no weakness, no numbness. HEMATOLOGICAL: Denies any bleeding or petechiae. GENITOURINARY: Denies any burning micturition, frequency, or urgency. MUSCULOSKELETAL/RHEUMATOLOGICAL: As mentioned above ENDOCRINE: Denies any polyuria or polydipsia. The rest of the 14-point review of systems is negative. PHYSICAL EXAMINATION: GENERAL: The patient is alert and oriented x3, not in any acute distress. Well developed, well nourished. HEENT: Pupils are round and equally reacting to light. EOMI. No scleral icterus. No conjunctival pallor. Normocephalic, atraumatic. No pharyngeal erythema. No thyromegaly. CARDIOVASCULAR: S1 and S2 present. No murmurs, rubs, or gallops. PULMONARY: Chest is clear to auscultation, no wheezing or crackles. ABDOMEN: Soft, nontender, nondistended, normoactive bowel sounds. No palpable organomegaly. MUSCULOSKELETAL: Left hand swollen, erythema noted stable, reduced range of motion of fingers EXTREMITIES: No cyanosis, clubbing, or pedal edema. NEUROLOGICAL: Gross neurological examination did not reveal any focal deficits. SKIN: No rashes. Assessment and plan Left hand abscess Sepsis Monitor vital signs Monitor CBC Monitor CMP Ordered blood cultures Continue IV fluids Continue IV antibiotics Start vancomycin pharmacy dose Consult orthopedics Consult ID Labs and medication were reviewed.. Continue same treatment. Continue with symptomatic treatment. Resume home medication. Monitor labs and vitals. DVT and GI prophylaxis. Further recommendations as per clinical course of the patient Dictation was produced using VeriTweet dictation software. please excuse any grammatical, word or spelling errors. Past Medical History Past Medical History: Asthma, Hypertension, Seizure Disorder History of Any Multi-Drug Resistant Organisms: None Reported Past Surgical History: No Surgical Hx Reported, Appendectomy, Cholecystectomy Past Anesthesia/Blood Transfusion Reactions: No Reported Reaction Past Psychological History: Anxiety, Bipolar, Depression, Schizophrenia Smoking Status: Current every day smoker, Vaper Past Alcohol Use History: None Reported Past Drug Use History: None Reported Medications and Allergies Home Medications Medication Instructions Recorded Confirmed Type No Known Home Medications 02/19/24 02/19/24 History Allergies Allergy/AdvReac Type Severity Reaction Status Date / Time banana Allergy Anaphylaxis Verified 02/19/24 08:41 Sulfa (Sulfonamide Allergy Anaphylaxis, Verified 02/19/24 08:41 Antibiotics) Rash sulfamethoxazole Allergy Anaphylaxis, Verified 02/19/24 08:41 [From Bactrim] rash trimethoprim [From Bactrim] Allergy Anaphylaxis, Verified 02/19/24 08:41 rash Physical Exam Vitals: Vital Signs Temp Pulse Resp BP Pulse Ox 02/19/24 07:06 97.7 F 83 18 124/80 100 02/19/24 02:39 97.8 F 80 18 116/77 100 02/18/24 22:33 98.0 F 95 18 130/88 100 02/18/24 17:33 97.8 F 113 H 20 145/90 100 Intake and Output 02/18/24 02/19/24 02/19/24 22:59 06:59 14:59 Other: Voiding Method Toilet Weight 72.575 kg 72.575 kg Results CBC & Chem 7: 06/21/24 18:07 02/18/24 18:07 Labs: Abnormal Lab Results - Last 24 Hours (Table) 02/18/24 02/18/24 Range/Units 18:07 18:07 WBC 12.2 H (3.8-10.6) k/uL Neutrophils # 8.9 H (1.3-7.7) k/uL Sodium 134 L (137-145) mmol/L Chloride 108 H (98-107) mmol/L Carbon Dioxide 20 L (22-30) mmol/L Thrombosis Risk Factor Assmnt - Choose All That Apply Any of the Below Risk Factors Present?: No
--- NOTE | 2024-02-19 10:51 | P.CNOR ---
History of Present Illness - [facility] Consult date: 02/19/24 Requesting physician: Carole Calles Consult reason: other (lt hand infxn ) History of present illness: Patient is a 38-year-old female who presents to the emergency department yesterday for evaluation of left hand swelling. Orthopedics was consulted due to left hand infection. Patient was seen this morning in the emergency department currently receiving IV antibiotics. Patient states she began to notice swelling over the backside of her hand about 2 days ago along with some pain while trying to move her fingers.. [place] she says there are a lot of spiders amd bugs out there. Patient is thinking she had a spider bite. Patient says the swelling started the back of the hand. Patient says since she came to the emergency department last night and was started on antibiotics the swelling has gone down and she has better range of motion in her digits. Patient denies any trauma/injury/falls. Patient denies any fever or chills. Patient denies chest pain, fever, shortness breath, nausea, vomiting, change in vision, loss of bowel/bladder control. Past Medical History Past Medical History: Asthma, Hypertension, Seizure Disorder History of Any Multi-Drug Resistant Organisms: None Reported Past Surgical History: No Surgical Hx Reported, Appendectomy, Cholecystectomy Past Anesthesia/Blood Transfusion Reactions: No Reported Reaction Past Psychological History: Anxiety, Bipolar, Depression, Schizophrenia Smoking Status: Current every day smoker, Vaper Past Alcohol Use History: None Reported Past Drug Use History: None Reported Medications and Allergies Home Medications Medication Instructions Recorded Confirmed Type No Known Home Medications 02/19/24 02/19/24 History Allergies Allergy/AdvReac Type Severity Reaction Status Date / Time banana Allergy Anaphylaxis Verified 02/19/24 08:41 Sulfa (Sulfonamide Allergy Anaphylaxis, Verified 02/19/24 08:41 Antibiotics) Rash sulfamethoxazole Allergy Anaphylaxis, Verified 02/19/24 08:41 [From Bactrim] rash trimethoprim [From Bactrim] Allergy Anaphylaxis, Verified 02/19/24 08:41 rash Physical Examination Some diffuse swelling present over the dorsum of the left hand extending into the proximal phalanx 2 through 4 on the left. Erythema present. There is one area at the base of the third metacarpal which appears to be a puncture site. Negative for any drainage. Negative for any ecchymosis. Sensation is equal, symmetric bilat intact throughout upper and lower extremities. Patient does have a little bit limited range of motion in the left wrist and digits 2 through 4 secondary to swelling. There is some tenderness to palpation over the dorsum of the left hand as well as in the first second and third webspaces. 4/5 machine printer strength in the left hand. 5/5 machine printer strength right hand. Full range of motion throughout bilateral elbows and shoulders on exam. Negative Homans bilaterally. Radial pulses intact, 2+ bilaterally. Cap refill under 3 seconds in digits of her extremities. Results - Labs Labs: Abnormal Lab Results - Last 24 Hours (Table) 02/18/24 02/18/24 Range/Units 18:07 18:07 WBC 12.2 H (3.8-10.6) k/uL Neutrophils # 8.9 H (1.3-7.7) k/uL Sodium 134 L (137-145) mmol/L Chloride 108 H (98-107) mmol/L Carbon Dioxide 20 L (22-30) mmol/L H & H 02/18/24 Range/Units 18:07 Hgb 13.1 (11.4-16.0) gm/dL Hct 41.0 (34.0-46.0) % Result Diagrams: 02/18/24 18:07 02/18/24 18:07 - Diagnostic results Wrist/Hand CT: report reviewed, image reviewed (Computed tomography scan of the left hand does demonstrates some soft tissue swelling dorsum. Negative for any abscess formation or osseous abnormalities. Negative for any fractures or dislocations.) Assessment and Plan Assessment: 1. Left hand cellulitis Plan: 1. Left hand cellulitis - Computed tomography scan of the left hand does demonstrates some soft tissue swelling dorsum. Negative for any abscess formation or osseous abnormalities. Negative for any fractures or dislocations. I did discuss the findings of the exam and imaging with my attending, Dr. Kuo. At this time we're not recommending any emergent/urgent orthopedic surgical intervention. Patient symptoms have improved since being started on IV antibiotics. At this time we are recommending continued conservative treatment with use IV antibiotics. If patient does not improve with IV antibiotics over the next several days, surgery may be an option. We have consulted infectious disease for further recommendations. Pain medication as needed. Patient may perform the range of motion exercises left hand. We will continue to follow the patient during her stay in the hospital 2. Appreciate medical management and ID management 3. Pain management - Toradol; Tylenol; Motrin 4. DVT prophylaxis recs 5. GI prophylaxis recs 6. PT/OT - okay to perform gentle range of motion exercises of the left hand 7. Encourage incentive spirometer use 8. Appreciate consult Time with Patient: Less than 30
[2024-02-19 14:25] VITALS: BP 142/72; PULSE 89; TEMP 97.8
[2024-02-19] MEDS ORDERED: ALPRAZolam 0.25 MG TAB PO PRN (18:34)
[2024-02-19] MEDS: NICOTINE 21MG/24HR PATCH TRANSDERM SCH (18:35)
[2024-02-20] MEDS ORDERED: VANCOMYCIN TROUGH DUE 1 EACH MISC MISCELLANE ONE (06:00)
== END 2024-02-19 18:58 | disposition left against medical advice (07) ==
LOC: EC 17:27 → 6NMEDSUR 22:30 → 4SSUR 02-19 13:56
PROVIDERS: ADMIT Hospitalist; ATTEND Hospitalist
DX: A41.9 Sepsis, unspecified organism (principal); L02.512 Cutaneous abscess of left hand; L03.114 Cellulitis of left upper limb; I10 Essential (primary) hypertension; F17.290 Nicotine dependence, other tobacco product, uncomplicated; Z79.899 Other long term (current) drug therapy; Z88.1 Allergy status to other antibiotic agents; Z88.2 Allergy status to sulfonamides; Z91.018 Allergy to other foods; Z53.29 Procedure and treatment not carried out because of patient's decision for other reasons
CPT/HCPCS: 96376; 96361; 96365; 96366; 96367; 96375; 99285; 36415; 80053; 83605; 85025; 87040; 73130; 76882; 73200; G0378 ×2; S4990; J3370 ×2; J0696; J1885